=== PATIENT | male | born 1995 | race Two or more races ===

== ENCOUNTER 2023-04-20 03:29 | Emergency (ER) | payer OTHER, SELFPAY ==
[2023-04-20 03:32] VITALS: BP 150/95; PULSE 64; RESP 18; TEMP 36.9; O2SAT 98; BMI 46.5
--- NOTE | 2023-04-20 03:48 | ED.ABDPAIN1 ---
HPI - Abdominal Pain General Chief Complaint: Abdominal Pain Stated Complaint: flank pain Time Seen by Provider: 04/20/23 03:45 History of Present Illness HPI narrative: right flank pain started about 1.5 hours ago. Reminiscent of last time he had a kidney stone. No associated nausea or fever MD elicited complaint: Reports flank pain Related Data Home Medications Medication Instructions Recorded Confirmed No Known Home Medications 04/20/23 04/20/23 Allergies Allergy/AdvReac Type Severity Reaction Status Date / Time No Known Drug Allergies Allergy Verified 04/20/23 03:35 Review of Systems ROS Status of ROS 10 or more systems reviewed and unremarkable except as noted in history and below [facility] Social History Smoking status: Never smoker Exam Constitutional Vital Signs, click to edit/add: Last Vital Signs Temp 98.4 F 04/20/23 03:32 Pulse 86 04/20/23 06:06 Resp 16 04/20/23 06:06 BP 148/79 H 04/20/23 06:06 Pulse Ox 97 04/20/23 06:06 O2 Del Method Room Air 04/20/23 03:32 Common normals: no apparent distress, average body habitus, oriented x3, no limitations, healthy appearing, alert and well nourished [facility] Common normals: normocephalic and head/scalp atraumatic Respiratory Common normals: normal respiratory effort, no retractions, no use of accessory muscles and clear to auscultation bilaterally Cardio Common normals: regular rate, regular rhythm, S1 normal heart sound and S2 normal heart sound GI Common normals: Normal to inspection, nondistended, normoactive bowel sounds present, soft to palpation and non-tender Back & Pelvis Common normals: no CVA tenderness Extremity Common normals: normal to inspection and full ROM Neuro Common normals: oriented x3, CN's II-XII intact bilaterally and moves all extremities Psych Appearance: grossly normal Course Vital Signs Vital signs: Vital Signs Temperature 98.4 F 04/20/23 03:32 Pulse Rate 64 04/20/23 03:32 Respiratory Rate 18 04/20/23 03:32 Blood Pressure 150/95 H 04/20/23 03:32 Pulse Oximetry 98 04/20/23 03:32 Oxygen Delivery Method Room Air 04/20/23 03:32 Temperature 98.4 F 04/20/23 03:32 Pulse Rate 86 04/20/23 06:06 Respiratory Rate 16 04/20/23 06:06 Blood Pressure 148/79 H 04/20/23 06:06 Pulse Oximetry 97 04/20/23 06:06 Oxygen Delivery Method Room Air 04/20/23 03:32 MDM - Abdominal Pain MDM Narrative Medical decision making narrative: patient presents with acute onset right flank pain. past history of kidney stones. Pain started about 1.5 hours ago. No fever. UA clear. WBC elevated due to pain. CT with 3mm stone R UVJ. Pain releived and patient discharged home and advised to follow up with his urologist Lab Data Labs: Lab Results 04/20/23 04/20/23 Range/Units 03:40 04:25 WBC 21.0 H (4.0-11.0) 10^3/uL RBC 5.17 (4.70-6.10) 10^6/uL Hgb 15.3 (14.0-18.0) g/dL Hct 45.2 (42.0-54.0) % MCV 87.4 (80.0-94.0) fL MCH 29.6 (25.9-34.0) pg MCHC 33.8 (29.9-35.2) g/dL RDW 13.1 (11.0-15.0) % Plt Count 243 (150-450) 10^3/uL MPV 9.9 (9.5-13.5) fL Seg Neuts % (Manual) 51.0 Band Neutrophils % 0.0 (0-5) % Lymphocytes % (Manual) 24.0 (20.5-60.0) % Atypical Lymphs % (Man) 12.0 % Monocytes % (Manual) 10.0 (1.7-12.0) % Eosinophils % (Manual) 4.0 (0.9-7.0) % Basophils % (Manual) 0.0 L (0.2-2.0) % Neutrophils # (Manual) 10.71 H (1.4-6.5) 10^3/uL Band Neutrophils # 0.0 (0.0-0.3) 10^3/uL Lymphocytes # (Manual) 5.04 H (1.20-3.80) 10^3/uL Abs Atypical Lymphs Man 2.52 Monocytes # (Manual) 2.10 H (0.30-0.80) 10^3/uL Eosinophils # (Manual) 0.84 H (0.00-0.70) 10^3/uL Basophils # (Manual) 0.00 (0.00-0.10) 10^3/uL Sodium 139 (136-145) mmol/L Potassium 3.8 (3.5-5.1) mmol/L Chloride 104 (98-107) mmol/L Carbon Dioxide 27.2 (21.0-32.0) mmol/L Anion Gap 11.6 BUN 20.0 H (7.0-18.0) mg/dL Creatinine 1.40 H (0.70-1.30) mg/dL Est GFR ( Amer) >60 (>=60) Est GFR (Non-Af Amer) >60 (>=60) BUN/Creatinine Ratio 14.3 Glucose 112 H (74-106) mg/dL Calcium 8.9 (8.5-10.1) mg/dL Urine Color Yellow (YELLOW) Urine Clarity Clear (CLEAR) Urine pH 6.0 (5.0-9.0) Ur Specific Cod[place] 1.025 (1.005-1.025) Urine Protein Negative (NEG/TRACE) mg/dL Urine Glucose (UA) Negative (NEGATIVE) mg/dL Urine Ketones Negative (NEGATIVE) mg/dL Urine Occult Blood Negative (NEGATIVE) Urine Nitrite Negative (NEGATIVE) Urine Bilirubin Negative (NEGATIVE) Urine Urobilinogen 0.2 (0.2-1.0) EU/dL Ur Leukocyte Esterase Negative (NEGATIVE) Imaging Data Abdominal x-ray: Radiologist's impression: ITS Impressions Abdomen/Pelvis CT 04/20/23 03:50 IMPRESSION: There is a 0.3 cm obstructing calculus at the right UVJ with mild right pelvocaliectasis and mild right hydroureter. There are 0.1 cm, 0.3 cm and 0.4 cm nonobstructive calculi within the right renal pelvis. There are 0.2 cm, 0.4 cm and 0.3 cm nonobstructive calculi within the left renal pelvis. There is fatty infiltration of the liver. Electronically authenticated by: BONNIE HDZ Date: 04/20/2023 04:28 Discharge Plan Discharge Chief Complaint: Abdominal Pain Clinical Impression: Calculus of kidney Patient Disposition: Home, Self-Care Prescriptions / Home Meds: No Action No Known Home Medications Instructions: Kidney Stones (ED) Additional Instructions: follow up with your urologist Referrals: Physician,Non-Staff, MD [Primary Care Provider] - 1 week Sachin Tavarez MD [Physician] - As soon as possible Discharge Date/Time: 04/20/23 06:07 Stand Alone Forms: Portal Instructions
--- NOTE | 2023-04-20 03:50 | CT_ITS ---
The [address] [address] Patient Name: DOMINICK BUCK MRN: [id number] date: 1995 Sex: M Assigned Patient Location: ER Current Patient Location: ER Accession/Order Number: [id number] Exam Date: 04/20/2023 03:57 Report Date: 04/20/2023 04:28 At the request of: ORLANDO AGUILERA Procedure: CT abdomen pelvis wo con EXAM: CT abdomen pelvis wo con HISTORY: Right flank pain for one day and history of kidney stones. COMPARISON: None. TECHNIQUE: Routine CT abdomen/pelvis without intravenous contrast. FINDINGS: Right kidney/urinary bladder: There is a 0.3 cm obstructing calculus at the right UVJ with mild right pelvocaliectasis and mild right hydroureter. There are 0.1 cm, 0.3 cm and 0.4 cm nonobstructive calculi within the right renal pelvis. The urinary bladder is otherwise collapsed and not well visualized. Left kidney: There are 0.2 cm, 0.4 cm and 0.3 cm nonobstructive calculi within the left renal pelvis. There is no pelvocaliectasis and the left ureter is unremarkable. Lower chest: Unremarkable. Solid organs: There is fatty infiltration of the liver. The gallbladder, biliary tree, pancreas, spleen and bilateral adrenal glands are unremarkable. Bowel: Nonobstructive bowel gas pattern with a small amount of stool within the colon. The colon, appendix, distal esophagus, stomach and small bowel are unremarkable. Vasculature: There is a very small atheromatous calcification along the abdominal aorta. The IVC is unremarkable. Inflammation: There is no free air, free fluid or inflammatory reaction. Lymphadenopathy: There are no pathologically enlarged lymph nodes within the abdomen/pelvis. Pelvis: The prostate gland is normal size. Osseous: Unremarkable. CT/CT abdomen pelvis wo con IMPRESSION: There is a 0.3 cm obstructing calculus at the right UVJ with mild right pelvocaliectasis and mild right hydroureter. There are 0.1 cm, 0.3 cm and 0.4 cm nonobstructive calculi within the right renal pelvis. There are 0.2 cm, 0.4 cm and 0.3 cm nonobstructive calculi within the left renal pelvis. There is fatty infiltration of the liver. Electronically authenticated by: BONNIE HDZ Date: 04/20/2023 04:28
[2023-04-20 03:59] LABS: Hematocrit 45.2 % (42.0-54.0); Hemoglobin 15.3 g/dL (14.0-18.0); Mean Corpuscular HGB Conc 33.8 g/dL (29.9-35.2); Mean Corpuscular Hemoglobin 29.6 pg (25.9-34.0); Mean Corpuscular Volume 87.4 fL (80.0-94.0); Mean Platelet Volume 9.9 fL (9.5-13.5); Platelet Count 243 10^3/uL (150-450); Red Blood Count 5.17 10^6/uL (4.70-6.10); Red Cell Distribution Width 13.1 % (11.0-15.0)
[2023-04-20 04:13] LABS: Anion Gap 11.6; BUN Creatinine Ratio 14.3; Calcium 8.9 mg/dL (8.5-10.1); Carbon Dioxide 27.2 mmol/L (21.0-32.0); Chloride 104 mmol/L (98-107); Estimated GFR (African America >60 (>=60); Estimated GFR (Non-African Ame >60 (>=60); Glucose 112 mg/dL (74-106); Potassium 3.8 mmol/L (3.5-5.1); Sodium 139 mmol/L (136-145)
[2023-04-20] MEDS: 0.9 % SODIUM CHLORIDE 1,000 ML 999 ML IV (04:24)
[2023-04-20] MEDS: KETOROLAC TROMETHAMINE 30 MG/ML VIAL IM (04:25)
[2023-04-20 04:26] LABS: Atypical Lymphocytes Abs Man 2.52; Eosinophils Absolute Manual 0.84 10^3/uL (0.00-0.70); Lymphocytes Absolute Manual 5.04 10^3/uL (1.20-3.80); Segmented Neut Absolute Manual 10.71 10^3/uL (1.4-6.5)
[2023-04-20 04:33] LABS: Bilirubin Urine NEGATIVE (NEGATIVE); Blood Urine NEGATIVE (NEGATIVE); Clarity Urine CLEAR (CLEAR); Color Urine YELLOW (YELLOW); Glucose Urine UA NEGATIVE (NEGATIVE); Ketones Urine NEGATIVE (NEGATIVE); Leukocyte Esterase Urine NEGATIVE (NEGATIVE); Nitrite Urine NEGATIVE (NEGATIVE); Protein Urine NEGATIVE (NEG/TRACE); Specific Gravity Urine 1.025 (1.005-1.025); Urine Microscopic Indicated NO; Urobilinogen Urine 0.2 EU/dL (0.2-1.0)
[2023-04-20] MEDS: FENTANYL CITRATE/PF 100 MCG/2 ML VIAL 50 MCG IV (05:02)
[2023-04-20] MEDS: ORPHENADRINE 60 MG/ 2 ML VIAL IV (05:03)
[2023-04-20 06:06] VITALS: BP 148/79; PULSE 86; RESP 16; O2SAT 97
== END 2023-04-20 06:07 | disposition home or self-care (01) ==
PROVIDERS: Emergency Provider Internal Medicine
DX: N20.0 Calculus of kidney (principal); Z87.442 Personal history of urinary calculi
CPT/HCPCS: 36415; 74176; 80048; 81003; 85007; 85027; 96372; 96374; 96375; 99284

== ENCOUNTER 2024-02-04 17:31 | Emergency (ER) | payer MEDICAID, SELFPAY ==
[2024-02-04 17:39] VITALS: BP 132/84; PULSE 74; TEMP 36.8; O2SAT 97; BMI 44.3
--- NOTE | 2024-02-04 17:46 | ECG_ITS ---
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
--- NOTE | 2024-02-04 17:50 | CT_ITS ---
[address] [address] Patient Name: DOMINICK BUCK MRN: [id number] date: 1995 Sex: M Assigned Patient Location: ER Current Patient Location: ER Accession/Order Number: [id number] Exam Date: 02/04/2024 18:27 Report Date: 02/04/2024 20:28 At the request of: ANGELIQUE RAJAN Procedure: CT abdomen pelvis wo con CT ABDOMEN/PELVIS WITHOUT IV CONTRAST. INDICATION: left flank pain, history of nephrolithiasis COMPARISON: 04/20/2023. TECHNIQUE: Contiguous axial images were obtained from the lung bases to the pelvic floor without intravenous or oral contrast. Coronal and sagittal reformations are provided. FINDINGS: LOWER LUNGS: Clear. LIVER/BILIARY TREE: No discrete lesion. No intrahepatic ductal dilatation. Hepatic steatosis. GALLBLADDER: No significant gallbladder wall thickening. No radiopaque stone. CBD: Normal CBD. SPLEEN: Normal in size. PANCREAS: No appreciable peripancreatic fluid. No pancreatic ductal dilatation. No discrete lesion. ADRENALS: Normal. KIDNEYS: There is an obstructing 3 x 3 mm stone in the distal third of the left ureter resulting in minimal hydronephrosis. There are nonobstructing bilateral renal stones.. STOMACH AND BOWEL: Stomach is unremarkable. No dilated bowel loops. No bowel wall thickening. APPENDIX: Normal appendix. PERITONEAL CAVITY: No fluid. No fat stranding. ABDOMINAL WALL: No subcutaneous stranding. No subcutaneous fluid collection. LYMPH NODES: No mesenteric or retroperitoneal lymphadenopathy by CT criteria. ABDOMINAL AORTA: No aneurysm. PELVIS: No acute abnormality. MUSCULOSKELETAL: No acute osseous abnormality. CT/CT abdomen pelvis wo con IMPRESSION: Obstructing 3 mm left ureteral stone resulting in minimal hydronephrosis. Bilateral nephrolithiasis. Electronically authenticated by: NELSON YANEZ Date: 02/04/2024 20:28
--- NOTE | 2024-02-04 17:53 | PC.NURSE ---
patient has history of kidney stones that he has passed on his own previously. patient reports left flank pain that began earlier today that comes and goes and causes nausea and vomiting.
[2024-02-04] MEDS: ONDANSETRON PF 4 MG/2 ML VIAL IV (17:59)
[2024-02-04] MEDS: KETOROLAC TROMETHAMINE 30 MG/ML VIAL IVP (17:59)
[2024-02-04] MEDS: 0.9 % SODIUM CHLORIDE 1,000 ML 100 ML IV (17:59)
--- OUTSIDE RECORDS SUMMARY | 2024-02-04 18:02 | XMS_ITS | CCD ---
Author Organization [facility] Care Team Providers Care Retort Load Expediter Name Role Phone Harishkia DO Arcadio Catalan Attending Provider [phone] SHAMMO, ERIK Admitting Unavailable SHAMMO, ERIK Attending Unavailable SHAMMO, ERIK Primary Care Unavailable SHAMMO, ERIK Admitting Unavailable SHAMMO, ERIK Attending Unavailable SHAMMO, ERIK Consulting Unavailable SHAMMO, ERIK Primary Care Unavailable Problems Problem Classification Problem Date Documented Date Episodic/Chronic Immunizations and screening for infectious disease (1 source) Encounter for screening for other viral diseases; Translations: [ENC SCREENING FOR OTH VIRAL DZ] Onset: 11-18-2021 Episodic Other screening for suspected conditions (not mental disorders or infectious disease) (2 sources) Encounter for screening for other suspected endocrine disorder; Translations: [Encounter for screening for cardiovascular disorders] Onset: 11-18-2021 Episodic Results Test Name Value Interpretation Reference Range Facility HEPATITIS C VIRUS AB W/ REFL EX QUANTon 11-17-2021 HCV AB <0.1 Normal 0.0-0.9 [facility] Comment on above: Performed By: #### H CVPCRR #### [facility] [address] [address] [address] Dayna Maldonado Interpretation: Comment Normal [facility] Comment on above: Result Comment: Nega tive Not infected with HCV, unless recent infection is suspected or other evidence exists to indicate HCV infection. Performed By: #### H CVPCRR #### [facility] [address] [address] [address] Dayna Maldonado CBC AUTO DIFFon 11-16-2021 BASO # 0.1 103/ul Normal 0.0-0.1 [facility] Comment on above: Performed By: #### C BC #### [facility] [address] [address] [address] Dayna Maldonado Basophils/100 WBC (Bld) 0.4 % Normal 0.2-2.0 [facility] Comment on above: Performed By: #### C BC #### [facility] [address] [place] [address] Dr. Dayna Maldonado EO # 0.5 103/ul Normal 0.0-0.7 [facility] Comment on above: Performed By: #### C BC #### [facility] [address] [place] [address] Dr. Dayna Maldonado Eosinophils/100 WBC (Bld) 4.1 % Normal 0.9-7.0 [facility] Comment on above: Performed By: #### C BC #### [facility] [address] [place] [address] Dr. Dayna Maldonado Erythrocyte distribution width (RBC) [Ratio] 12.9 % Normal 11.0-15.0 [facility] Comment on above: Performed By: #### C BC #### [facility] [address] [place] [address] Dr. Dayna Maldonado Hematocrit (Bld) [Volume fraction] 45.6 % Normal 42.0-54.0 [facility] Comment on above: Performed By: #### C BC #### [facility] [address] [place] [address] Dr. Dayna Maldonado Hemoglobin (Bld) [Mass/Vol] 15.2 g/dL Normal 14.0-18.0 [facility] Comment on above: Performed By: #### C BC #### [facility] [address] [place] [address] Dr. Dayna Maldonado IG # 0.08 10e3/ul Critically high 0.00-0.03 [facility] Comment on above: Performed By: #### C BC #### [facility] [address] [place] [address] Dr. Dayna Maldonado IG % 0.7 % Critically high 0.0-0.5 [facility] Comment on above: Performed By: #### C BC #### [facility] [address] [place] [address] Dr. Dayna Maldonado LYMPH # 4.5 103/ul Critically high 1.2-3.8 [facility] Comment on above: Performed By: #### C BC #### [facility] [address] [place] [address] Dr. Dayna Maldonado Lymphocytes/100 WBC (Bld) 39.6 % Normal 20.5-60.0 [facility] Comment on above: Performed By: #### C BC #### [facility] [address] [place] [address] Dr. Dayna Maldonado MANUAL DIFF REQ NO Normal [facility] Comment on above: Performed By: #### C BC #### [facility] [address] [place] [address] Dr. Dayna Maldonado MCH (RBC) [Entitic mass] 28.5 pg Normal 25.9-34.0 [facility] Comment on above: Performed By: #### C BC #### [facility] [address] [place] [address] Dr. Dayna Maldonado MCHC (RBC) [Mass/Vol] 33.3 g/dL Normal 29.9-35.2 [facility] Comment on above: Performed By: #### C BC #### [facility] [address] [place] [address] Dr. Dayna Maldonado MCV (RBC) [Entitic vol] 85.6 fL Normal 80.0-94.0 [facility] Comment on above: Performed By: #### C BC #### [facility] [address] [place] [address] Dr. Dayna Maldonado MONO # 0.9 103/ul Critically high 0.3-0.8 [facility] Comment on above: Performed By: #### C BC #### [facility] [address] [place] [address] Dr. Dayna Maldonado Monocytes/100 WBC (Bld) 7.8 % Normal 1.7-12.0 [facility] Comment on above: Performed By: #### C BC #### [facility] [address] [place] [address] Dr. Dayna Maldonado NEUT # 5.4 103/ul Normal 1.4-6.5 [facility] Comment on above: Performed By: #### C BC #### [facility] [address] [address] [address] Dayna Maldonado Neutrophils/100 WBC (Bld) 47.4 % Normal 43.0-75.0 [facility] Comment on above: Performed By: #### C BC #### [facility] [address] [address] [address] Dayna Maldonado Platelet mean volume (Bld) [Entitic vol] 9.9 fL Normal 9.5-13.5 [facility] Comment on above: Performed By: #### C BC #### [facility] [address] [place] [address] Dr. Dayna Maldonado PLT 194 103/ul Normal 150-450 [facility] Comment on above: Performed By: #### C BC #### [facility] [address] [place] [address] Dr. Dayna Maldonado RBC 5.33 106/ul Normal 4.70-6.10 [facility] Comment on above: Performed By: #### C BC #### [facility] [address] [address] [address] Dayna Maldonado WBC 11.4 103/ul Critically high 4.0-11.0 [facility] Comment on above: Performed By: #### C BC #### [facility] [address] [place] [address] Dr. Dayna Maldonado FREE T3on 11-16-2021 FREE T3 2.82 pg/mlL Normal 2.18-3.98 [facility] Comment on above: Performed By: #### F T3, LIPID, TSH, CMP #### [facility] [address] [address] [address] Dayna Maldonado FREE T4on 11-16-2021 Free T4 [Mass/Vol] 0.96 ng/dL Normal 0.76-1.46 [facility] Comment on above: Performed By: #### F T4 #### [facility] [address] [place] [address] Dr. Dayna Maldonado GLYCOHEMOGLOBIN A1Con 2021 ADA RECOMMENDATION SEE BELOW Normal [facility] Comment on above: Result Comment: ADA RECOMMENDED LIMIT 4.0 - 6.0 ADA THERAPEUTIC TARGET < 7.0 ACTION SUGGESTED > 7.0 Performed By: #### A 1C #### [facility] [address] [address] [address] Dayna Maldonado Glucose [Mass/Vol] 111 mg/dL Normal [facility] Comment on above: Performed By: #### A 1C #### [facility] [address] [address] [address] Dayna Maldonado HbA1c (Bld) [Mass fraction] 5.5 % Normal 4.5-6.2 [facility] Comment on above: Performed By: #### A 1C #### [facility] [address] [place] [address] Dr. Dayna Maldonado LIPID PROFILEon 11-16-2021 CHOL-HDL RATIO NORM SEE BELOW Normal [facility] Comment on above: Result Comment: 3.3 - 4.4 LOW RISK 4.4 - 7.1 AVERAGE RISK 7.1 - 11.0 MODERATE RISK >11.0 HIGH RISK Performed By: #### F T3, LIPID, TSH, CMP #### [facility] [address] [place] [address] Dr. Dayna Maldonado Cholesterol [Mass/Vol] 153 mg/dL Normal <=200 [facility] Comment on above: Performed By: #### F T3, LIPID, TSH, CMP #### [facility] [address] [place] [address] Dr. Dayna Maldonado Cholesterol in HDL [Mass/Vol] 30 mg/dL Critically low 40-60 [facility] Comment on above: Performed By: #### F T3, LIPID, TSH, CMP #### [facility] [address] [place] [address] Dr. Dayna Maldonado Cholesterol in LDL [Mass/Vol] 96.0 mg/dL Normal [facility] Comment on above: Performed By: #### F T3, LIPID, TSH, CMP #### [facility] [address] [place] [address] Dr. Dayna Maldonado Cholesterol.total/Cho lesterol in HDL [Mass ratio] 5.1 {ratio} Normal [facility] Comment on above: Performed By: #### F T3, LIPID, TSH, CMP #### [facility] [address] [address] [address] Dayna Maldonado HDL NORMAL > or = 60 mg/dl - LOW CARDIOVASCULAR RISK <40 mg/dl - HIGH CARDIOVASCULAR RISK Normal [facility] Comment on above: Performed By: #### F T3, LIPID, TSH, CMP #### [facility] [address] [place] [address] Dr. aDyna Maldonado LDL CALC NORMAL SEE BELOW Normal [facility] Comment on above: Result Comment: <100 mg/dl OPTIMAL 100 - 129 mg/dl NEAR OR ABOVE OPTIMAL 130 - 159 mg/dl BORDERLINE HIGH 160 - 189 mg/dl HIGH >190 mg/dl VERY HIGH Performed By: #### F T3, LIPID, TSH, CMP #### [facility] [address] [place] [address] Dr. Dayna Maldonado Triglyceride [Mass/Vol] 135 mg/dL Normal <=150 [facility] Comment on above: Performed By: #### F T3, LIPID, TSH, CMP #### [facility] [address] [place] [address] Dr. Dayna Maldonado VLDL CALC 27.0 mg/dL Normal [facility] Comment on above: Performed By: #### F T3, LIPID, TSH, CMP #### [facility] [address] [place] [address] Dr. Dayna Maldonado PROF 14(COMP METB)on 022 Albumin [Mass/Vol] 4.5 g/dL Normal 3.4-5.0 [facility] Comment on above: Performed By: #### F T3, LIPID, TSH, CMP #### [facility] [address] [place] [address] Dr. Dayna Maldonado Albumin/Globulin [Mass ratio] 1.5 {ratio} Normal [facility] Comment on above: Performed By: #### F T3, LIPID, TSH, CMP #### [facility] [address] [place] [address] Dr. Dayna Maldonado ALP [Catalytic activity/Vol] 49 U/L Normal 46-116 [facility] Comment on above: Performed By: #### F T3, LIPID, TSH, CMP #### [facility] [address] [place] [address] Dr. Dayna Maldonado ALT [Catalytic activity/Vol] 37 U/L Normal 16-63 [facility] Comment on above: Performed By: #### F T3, LIPID, TSH, CMP #### [facility] [address] [place] [address] Dr. Dayna Maldonado Anion gap [Moles/Vol] 13.9 mmol/L Normal [facility] Comment on above: Performed By: #### F T3, LIPID, TSH, CMP #### [facility] [address] [place] [address] Dr. Dayna Maldonado AST [Catalytic activity/Vol] 20 U/L Normal 15-37 [facility] Comment on above: Performed By: #### F T3, LIPID, TSH, CMP #### [facility] [address] [place] [address] Dr. Dayna Maldonado Bilirubin [Mass/Vol] 0.5 mg/dL Normal 0.2-1.0 [facility] Comment on above: Performed By: #### F T3, LIPID, TSH, CMP #### [facility] [address] [place] [address] Dr. Dayna Maldonado Calcium [Mass/Vol] 9.3 mg/dL Normal 8.5-10.1 [facility] Comment on above: Performed By: #### F T3, LIPID, TSH, CMP #### [facility] [address] [place] [address] Dr. Dayna Maldonado Chloride [Moles/Vol] 104 mmol/L Normal 98-107 [facility] Comment on above: Performed By: #### F T3, LIPID, TSH, CMP #### [facility] [address] [place] [address] Dr. Dayna Maldonado CO2 [Moles/Vol] 27.2 mmol/L Normal 21.0-32.0 [facility] Comment on above: Performed By: #### F T3, LIPID, TSH, CMP #### [facility] [address] [address] [address] Dayna Maldonado Creatinine [Mass/Vol] 0.95 mg/dL Normal 0.70-1.30 [facility] Comment on above: Performed By: #### F T3, LIPID, TSH, CMP #### [facility] [address] [address] [address] Dayna Maldonado EGFR-AF HUNGARIAN >60 Normal >=60 [facility] Comment on above: Performed By: #### F T3, LIPID, TSH, CMP #### [facility] [address] [address] [address] Dayna Maldonado EGFR-NON AF HUNGARIAN >60 Normal >=60 [facility] Comment on above: Performed By: #### F T3, LIPID, TSH, CMP #### [facility] [address] [address] [address] Dayna Maldonado Globulin (S) [Mass/Vol] 3.1 g/dL Normal [facility] Comment on above: Performed By: #### F T3, LIPID, TSH, CMP #### [facility] [address] [address] [address] Dayna Maldonado Glucose [Mass/Vol] 100 mg/dL Normal 74-106 [facility] Comment on above: Performed By: #### F T3, LIPID, TSH, CMP #### [facility] [address] [address] [address] Dayna Maldonado Potassium [Moles/Vol] 4.1 mmol/L Normal 3.5-5.1 [facility] Comment on above: Performed By: #### F T3, LIPID, TSH, CMP #### [facility] [address] [address] [address] Dayna Maldonado Protein [Mass/Vol] 7.6 g/dL Normal 6.4-8.2 [facility] Comment on above: Performed By: #### F T3, LIPID, TSH, CMP #### [facility] [address] [address] [address] Dayna Maldonado Sodium [Moles/Vol] 141 mmol/L Normal 136-145 [facility] Comment on above: Performed By: #### F T3, LIPID, TSH, CMP #### [facility] [address] [address] [address] Dayna Maldonado Urea nitrogen [Mass/Vol] 12.0 mg/dL Normal 7.0-18.0 [facility] Comment on above: Performed By: #### F T3, LIPID, TSH, CMP #### [facility] [id number] Dayna Maldonado Urea nitrogen/Creatinine [Mass ratio] 12.6 mg/mg Normal [facility] Comment on above: Performed By: #### F T3, LIPID, TSH, CMP #### [facility] [address] [address] [address] Dayna Maldonado TSHon 11-16-2021 TSH 0.973 uIU/mL Normal 0.358-3.740 [facility] Comment on above: Performed By: #### F T3, LIPID, TSH, CMP #### [facility] [address] [address] [address] Dayna Maldonado XR chest 1Von 08-18-2021 XR chest 1V [facility] [place] [address] XRay Report Signed Patient: Dominick Silverio MR#: [id number] 45 : 1995 Acct:[id number] Age/Sex: 26 / M ADM Date: 08/18/21 Loc: [place] Room: Type: [facility] REF Attending Dr: Arcadio Germain [facility] Copies to: Arcadio Germain DO Ordering Provider: Arcadio Germain DO Date of Service: 08/18/21 XR/XR chest 1V: PRE EMPLOYMENT RESP PHYSICAL PA CHEST: CLINICAL HISTORY: Smoker. COMPARISON: None The heart is normal in size. The lungs are clear. The pulmonary vasculature is normal. Mediastinum and hilar regions are unremarkable. No pleural effusions are seen. Visualized bones are intact. XR/XR chest 1V IMPRESSION: NEGATIVE CHEST. Impression dictated by: Brandon Sanchez Jr., D.O.08/18/2021 10:25 AM Dictation Location: [place] [address] Transcribed By: [facility] 08/18/21 1025 Dictated By: Brandon Sanchez Jr, DO 08/18/21 1025 Signed By: 08/18/21 1025 [facility] Encounters Encounter Date Encounter Type Care Provider Facility Start: 11-20-2021 ambulatory ERIK SHAMMO Facility:H 1 Start: 11-18-2021 Encounter for genera l adult medical examination without abnormal findings ERIK SHAMMO [facility] Start: 11-16-2021 End: 11-17-2021 ambulatory ERIK SHAMMO Facility:[facility] Start: 11-16-2021 End: 11-17-2021 Encounter for general adult medical examination without abnormal findings ERIK SHAMMO Facility:[facility]1 Start: 08-18-2021 End: 08-18-2021 Departed Referred DO Arcadio Germain Work Phone: [facility] [address] Payers Date Payer Category Payer Unknown [id number] 1995 Unknown [id number] 1957 Private Health Insurance [id number] 1957 Self-pay Social History Date Type Detail Facility Tobacco smoking stat [facility] Unknown if ever smoked [facility] Work Phone: Start: 1995 Sex Assigned At Male F [facility] Evaluation note Note Date & Type Note Facility Evaluation note No assessment information availa ble [facility] Work Phone: Chief Complaint and Reason for Visit Chief Complaint WORK Summary Purpose Family History No Family History Records FoundNo Family History Records Found Advance Directives No Advanced Directives Records FoundNo Advanced Directives Records Found Additional Source Comments Care Teams (unrecognized sec tion and content) Team Status: Inactive Member Role Status Dates Arcadio Germain DO [facility] Attending Provider Active Goals (unrecognized section and content) Goals may be documented in a n alternate section (unrecognized sect ion and content) No Status Records FoundNo Status Records Found INFORMATION SOURCE (unrecogn ized section and content) DATE CREATED AUTHOR 08/19/2021 [facility] DATE CREATED AUTHOR AUTHORMiracle ROONEY 11/21/2021 [facility] FOR RECORDS PERTAINING TO PATIENTS WHO ARE OR HAVE BEEN ENROLLED IN A CHEMICAL DEPENDENCY/SUBSTANCEABUSE PROGRAM, SOME INFORMATION MAY BE OMITTED. This clinical summary was aggregated from multiple sources. Caution should be exercised in using it in the provision of clinical care. This summary normalizes information from multiple sources, and as a consequence, information in this document may materially change the coding, format and clinical context of patient data. In addition, data may be omitted in some cases. CLINICAL DECISIONS SHOULD BE BASED ON THE PRIMARY CLINICAL RECORDS. [employer] provides no warranty or guarantee of the accuracy or completeness of information in this document.
[2024-02-04] MEDS: TAMSULOSIN HCL 0.4 MG CAPSULE PO (18:10)
[2024-02-04] MEDS: MORPHINE SULFATE 4 MG/ML VIAL IV (18:35)
[2024-02-04 18:49] LABS: Bilirubin Urine NEGATIVE (NEGATIVE); Blood Urine NEGATIVE (NEGATIVE); Clarity Urine CLEAR (CLEAR); Color Urine YELLOW (YELLOW); Glucose Urine UA NEGATIVE (NEGATIVE); Ketones Urine TRACE mg/dL (NEGATIVE); Leukocyte Esterase Urine NEGATIVE (NEGATIVE); Nitrite Urine NEGATIVE (NEGATIVE); Protein Urine 30 mg/dL (NEG/TRACE); Specific Gravity Urine >=1.030 (1.005-1.025); Urobilinogen Urine 0.2 EU/dL (0.2-1.0); pH Urine 5.5 (5.0-9.0)
[2024-02-04 18:54] LABS: Urine Microscopic Indicated YES
[2024-02-04 18:56] LABS: Bacteria Urine TRACE #/HPF (NONE SEEN); Cast Seen? NONE SEEN #/LPF (NONE SEEN); Crystals Seen? None Seen #/HPF (None Seen); Mucus Urine TRACE (NONE SEEN); RBC Urine 0-2 #/HPF (0-2); Squamous Epithelial Cell Urine RARE #/LPF (NONE/RARE)
[2024-02-04 19:05] LABS: Alanine Aminotransferase 51 U/L (16-63); Albumin Globulin Ratio 1.3; Albumin Level 4.5 g/dL (3.4-5.0); Alkaline Phosphatase 50 U/L (46-116); Anion Gap 18.6; Aspartate Amino Transferase 37 U/L (15-37); BUN Creatinine Ratio 12.6; Bilirubin Total 0.5 mg/dL (0.2-1.0); Calcium 9.6 mg/dL (8.5-10.1); Carbon Dioxide 23.7 mmol/L (21.0-32.0); Chloride 102 mmol/L (98-107); Estimated GFR (African America >60 (>=60 mL/min/1.73m^2); Estimated GFR (Non-African Ame >60 (>=60 mL/min/1.73m^2); Globulin 3.4 g/dL; Glucose 137 mg/dL (74-106); Potassium 4.3 mmol/L (3.5-5.1); Sodium 140 mmol/L (136-145); Total Protein 7.9 g/dL (6.4-8.2)
[2024-02-04 19:13] LABS: Basophils Absolute Auto 0.1 10^3/uL (0.0-0.1); Basophils Percent Auto 0.3 % (0.2-2.0); Eosinophils Absolute Auto 0.1 10^3/uL (0.0-0.7); Eosinophils Percent Auto 0.6 % (0.9-7.0); Hematocrit 44.7 % (42.0-54.0); Hemoglobin 15.5 g/dL (14.0-18.0); Immature Granulocytes Abs Auto 0.09 10^3/uL (0.00-0.03); Immature Granulocytes Pct Auto 0.5 % (0.0-0.5); Lymphocytes Absolute Auto 2.8 10^3/uL (1.2-3.8); Lymphocytes Percent Auto 14.7 % (20.5-60.0); Mean Corpuscular HGB Conc 34.7 g/dL (29.9-35.2); Mean Corpuscular Hemoglobin 29.8 pg (25.9-34.0); Mean Corpuscular Volume 85.8 fL (80.0-94.0); Mean Platelet Volume 9.9 fL (9.5-13.5); Monocytes Absolute Auto 0.5 10^3/uL (0.3-0.8); Monocytes Percent Auto 2.7 % (1.7-12.0); Neutrophils Absolute Auto 15.1 10^3/uL (1.4-6.5); Neutrophils Percent Auto 81.2 % (43.0-75.0); Platelet Count 197 10^3/uL (150-450); Red Blood Count 5.21 10^6/uL (4.70-6.10); White Blood Count 18.7 10^3/uL (4.0-11.0)
[2024-02-04 19:16] VITALS: BP 147/81; PULSE 60; O2SAT 99
[2024-02-04] MEDS: HYDROMORPHONE HCL 0.5 MG/0.5 ML SYRINGE IV (19:40)
--- NOTE | 2024-02-04 20:23 | ED_ITS ---
HPI HPI - General Adult General Chief complaint: Urogenital-Male Stated complaint: CP, ABDOMINAL PAIN, BACK PAIN Time Seen by Provider: 02/04/24 17:50 Source: patient Mode of arrival: Carry Limitations: no limitations History of Present Illness HPI narrative: 28-year-old male presents to the emergency room chief complaint of left flank pain. Patient states the pain is similar to stones that he has had in the past. Surgery for stones in the past he has not had one for several months. He does not see urology. Patient complains of mild nausea but denies fever or emesis. patient states he has been able to urinate. He states he has had some pain with urination. patient is currently aFebrile. Related Data Previous Rx's ?Medication ?Instructions ?Recorded ondansetron HCl 4 mg tablet 4 mg PO Q8H 3 days #9 tabs 02/04/24 tamsulosin 0.4 mg capsule (Flomax) 0.4 mg PO DAILY #5 caps 02/04/24 Allergies Allergy/AdvReac Type Severity Reaction Status Date / Time No Known Drug Allergies Allergy Verified 04/20/23 03:35 Opioid HPI Opioid Management Most Recent Opioid Data: Last Pain Scale 4 02/04/24 20:57 02/04/24 Last ED Pain Assessment 02/04/24 19:17 Review of Systems ROS Narrative All Systems are negative except as noted/marked.All systems reviewed and otherwise negative PFSH PFSH Social History Smoking status: Never smoker Little interest or pleasure in doing things: not at all Feeling down, depressed, or hopeless: not at all Exam Narrative Exam Narrative: Nurses note and vital signs reviewed and patient is not hypoxic. General: The patient appears well and in no apparent distress. Patient is resting comfortably on cart. Skin: Warm, dry, no pallor noted. There is no rash noted. Head: Normocephalic, atraumatic Eye: Normal conjunctiva, no drainage, EOMI. PERRL Ears, Nose, Mouth, and Throat: oral mucosa is moist. Nares patent. Mouth without vesicles. Ear canals patent. Tm's without Erythema Cardiovascular: Regular Rate and Rhythm Respiratory: Patient is in no distress, no accessory muscle use, lungs are clear to auscultation, no wheezing, rales or rhonchi Back: non-tender, no CVA tenderness bilaterally to percussion. GI: Normal bowel sounds, no tenderness to palpation, no masses appreciated. No rebound, guarding, or rigidity noted. Musculoskeletal: The patient has no evidence of calf tenderness, no pitting edema, symmetrical pulses noted bilaterally Neurological: A&O x4, normal speech Psychiatric: Cooperative Constitutional Vital Signs, click to edit/add: Last Vital Signs Temp 98.3 F 02/04/24 17:39 Pulse 60 02/04/24 19:16 Resp 16 02/04/24 19:16 BP 147/81 H 02/04/24 19:16 Pulse Ox 99 02/04/24 19:16 O2 Del Method Room Air 02/04/24 19:16 Course Vital Signs Vital signs: Vital Signs Temperature 98.3 F 02/04/24 17:39 Pulse Rate 74 02/04/24 17:39 Respiratory Rate 16 02/04/24 17:39 Blood Pressure 132/84 02/04/24 17:39 Pulse Oximetry 97 02/04/24 17:39 Oxygen Delivery Method Room Air 02/04/24 17:39 Temperature 98.3 F 02/04/24 17:39 Pulse Rate 60 02/04/24 19:16 Respiratory Rate 16 02/04/24 19:16 Blood Pressure 147/81 H 02/04/24 19:16 Pulse Oximetry 99 02/04/24 19:16 Oxygen Delivery Method Room Air 02/04/24 19:16 Medical Decision Making [facility] Narrative Medical decision making narrative: 8-year-old male presented to the emergency room chief complaint of left flank pain. He has a history of kidney stones and felt like the pain was similar to previous episodes. Upon arrival to the emergency room IV was established CBC cMP were also drawn. Labs were reviewed patient had an elevated white blood cell count only due to pain. He said previous blood work here in the emergency room white cell count was 20 at that time is 18,000 today. 20 BUN/creatinine were within normal limits. Patient was sent to CT. CT did result and patient has a 3 mm obstructing stone with mild hydronephrosis. Patient's pain was controlled with IV fluids Toradol Zofran and morphine. Patient has been here waiting for several hours for CT scan to be resulted. Since that time he recently went to the restroom and states he had urinated mild amount of blood and felt some pain and now his pain is totally gone. He believes he may have passed the stone. Patient advised to follow-up with urology. He will be discharged home with Zofran, [place] and Flomax. Patient verbalized understanding agrees with plan of care. Patient knows to return to the emergency room with increased pain or difficulty or inability to urinate. Differential Diagnosis Differential Diagnosis: flank pain, kidnedy stone Medical Records Medical records reviewed: Yes I reviewed the patient's medical records Lab Data Lab results reviewed: Yes I reviewed the patient's lab results Labs: Lab Results 02/04/24 02/04/24 02/04/24 Range/Units 17:51 18:11 19:03 WBC 18.7 H (4.0-11.0) 10^3/uL RBC 5.21 (4.70-6.10) 10^6/uL Hgb 15.5 (14.0-18.0) g/dL Hct 44.7 (42.0-54.0) % MCV 85.8 (80.0-94.0) fL MCH 29.8 (25.9-34.0) pg MCHC 34.7 (29.9-35.2) g/dL RDW 13.0 (11.0-15.0) % Plt Count 197 (150-450) 10^3/uL MPV 9.9 (9.5-13.5) fL Neut % (Auto) 81.2 H (43.0-75.0) % Lymph % (Auto) 14.7 L (20.5-60.0) % [place] % (Auto) 2.7 (1.7-12.0) % Eos % (Auto) 0.6 L (0.9-7.0) % Baso % (Auto) 0.3 (0.2-2.0) % Neut # (Auto) 15.1 H (1.4-6.5) 10^3/uL Lymph # (Auto) 2.8 (1.2-3.8) 10^3/uL [place] # (Auto) 0.5 (0.3-0.8) 10^3/uL Eos # (Auto) 0.1 (0.0-0.7) 10^3/uL Baso # (Auto) 0.1 (0.0-0.1) 10^3/uL Abs Immat Gran (auto) 0.09 H (0.00-0.03) 10^3/uL Imm/Tot Granulo (auto) 0.5 (0.0-0.5) % Sodium 140 (136-145) mmol/L Potassium 4.3 (3.5-5.1) mmol/L Chloride 102 (98-107) mmol/L Carbon Dioxide 23.7 (21.0-32.0) mmol/L Anion Gap 18.6 BUN 15.0 (7.0-18.0) mg/dL Creatinine 1.19 (0.70-1.30) mg/dL Est GFR ( Amer) >60 (>=60 mL/min/1.73m^2) Est GFR (Non-Af Amer) >60 (>=60 mL/min/1.73m^2) BUN/Creatinine Ratio 12.6 Glucose 137 H (74-106) mg/dL Calcium 9.6 (8.5-10.1) mg/dL Total Bilirubin 0.5 (0.2-1.0) mg/dL AST 37 (15-37) U/L ALT 51 (16-63) U/L Alkaline Phosphatase 50 (46-116) U/L Total Protein 7.9 (6.4-8.2) g/dL Albumin 4.5 (3.4-5.0) g/dL Globulin 3.4 g/dL Albumin/Globulin Ratio 1.3 Urine Color Yellow (YELLOW) Urine Clarity Clear (CLEAR) Urine pH 5.5 (5.0-9.0) Ur Specific [place] >=1.030 A (1.005-1.025) Urine Protein 30 A (NEG/TRACE) mg/dL Urine Glucose (UA) Negative (NEGATIVE) mg/dL Urine Ketones Trace A (NEGATIVE) mg/dL Urine Occult Blood Negative (NEGATIVE) Urine Nitrite Negative (NEGATIVE) Urine Bilirubin Negative (NEGATIVE) Urine Urobilinogen 0.2 (0.2-1.0) EU/dL Ur Leukocyte Esterase Negative (NEGATIVE) Urine RBC 0-2 (0-2) #/HPF Urine WBC 2-5 A (NONE SEEN) #/HPF Ur Squamous Epith Cells Rare (NONE/RARE) #/LPF Urine Crystals None seen (None Seen) #/HPF Urine Bacteria Trace A (NONE SEEN) #/HPF Urine Casts None seen (NONE SEEN) #/LPF Urine Mucus Trace A (NONE SEEN) Imaging Data CT scan - abdomen: Radiologist's impression: ITS Impressions Abdomen/Pelvis CT 02/04/24 17:50 IMPRESSION: Obstructing 3 mm left ureteral stone resulting in minimal hydronephrosis. Bilateral nephrolithiasis. Electronically authenticated by: NELSON YANEZ Date: 02/04/2024 20:28 ECG Data Interpretation: 1746 normal sinus rhythm with a rate of 76 bpm NH interval 162 ms QRS duration [address] elevation depression no STEMI Discharge Plan Discharge Chief Complaint: Urogenital-Male Clinical Impression: Calculus of kidney Patient Disposition: Home, Self-Care Time of Disposition Decision: 20:39 Condition: Good Prescriptions / Home Meds: New tamsulosin [Flomax] 0.4 mg capsule 0.4 mg PO DAILY Qty: 5 0RF ondansetron HCl 4 mg tablet 4 mg PO Q8H 3 Days Qty: 9 0RF Print Language: [place] Instructions: Kidney Stones (ED), How to Strain Your Urine (ED) Referrals: Physician,Non-Staff, MD [Primary Care Provider] - 1 week
[2024-02-04] MEDS: HYDROCODONE/ACET 5-325 MG TABLET 2 TAB PO (20:57)
== END 2024-02-04 21:06 | disposition home or self-care (01) ==
PROVIDERS: Physician Assistant; Emergency Provider Emergency Medicine
DX: N13.2 Hydronephrosis with renal and ureteral calculous obstruction (principal); Z87.442 Personal history of urinary calculi
CPT/HCPCS: 36415; 74176; 80053; 81001; 85025; 93005; 96374; 96375; 99285; J1171; J1885; J2270; J2405

== ENCOUNTER 2024-02-05 17:28 | Observation (INO) | payer MEDICAID, SELFPAY ==
--- OUTSIDE RECORDS SUMMARY | 2024-02-05 17:32 | XMS_ITS | CCD ---
Author Organization [facility] Care Team Providers Care Paid Search Marketing Strategist Name Role Phone Harishkia DO Arcadio Catalan Attending Provider SHAMMO, ERIK Admitting Unavailable SHAMMO, ERIK Attending [...] QUANTon 11-17-2021 HCV AB <0.1 Normal 0.0-0.9 [facility] Comment on above: Performed By: #### H CVPCRR #### [facility] [address] [address] [address] Dayna Maldonado Interpretation: Comment Normal [facility] Comment on above: Result Comment: Nega tive Not infected with HCV, unless recent infection is suspected or other evidence exists to indicate HCV infection. Performed By: #### H CVPCRR #### [facility] [address] [address] [address] Dayna Maldonado CBC AUTO DIFFon 11-16-2021 BASO # 0.1 103/ul Normal 0.0-0.1 [facility] Comment on above: Performed By: #### C BC #### [facility] [address] [address] [address] Dayna Maldonado Basophils/100 WBC (Bld) 0.4 % Normal 0.2-2.0 [facility] Comment on above: Performed By: #### C BC #### [facility] [address] [place] [address] Dr. Dayna Maldonado EO # 0.5 103/ul Normal 0.0-0.7 [facility] Comment on above: Performed By: #### C BC #### [facility] [address] [place] [address] Dr. Dayna Maldonado Eosinophils/100 WBC (Bld) 4.1 % Normal 0.9-7.0 [facility] Comment on above: Performed By: #### C BC #### [facility] [address] [place] [address] Dr. Dayna Maldonado Erythrocyte distribution width (RBC) [Ratio] 12.9 % Normal 11.0-15.0 [facility] Comment on above: Performed By: #### C BC #### [facility] [address] [place] [address] Dr. Dayna Maldonado Hematocrit (Bld) [Volume fraction] 45.6 % Normal 42.0-54.0 [facility] Comment on above: Performed By: #### C BC #### [facility] [address] [place] [address] Dr. Dayna Maldonado Hemoglobin (Bld) [Mass/Vol] 15.2 g/dL Normal 14.0-18.0 [facility] Comment on above: Performed By: #### C BC #### [facility] [address] [place] [address] Dr. Dayna Maldonado IG # 0.08 10e3/ul Critically high 0.00-0.03 [facility] Comment on above: Performed By: #### C BC #### [facility] [address] [place] [address] Dr. Dayna Maldonado IG % 0.7 % Critically high 0.0-0.5 [facility] Comment on above: Performed By: #### C BC #### [facility] [address] [place] [address] Dr. Dayna Maldonado LYMPH # 4.5 103/ul Critically high 1.2-3.8 [facility] Comment on above: Performed By: #### C BC #### [facility] [address] [place] [address] Dr. Dayna Maldonado Lymphocytes/100 WBC (Bld) 39.6 % Normal 20.5-60.0 [facility] Comment on above: Performed By: #### C BC #### [facility] [address] [place] [address] Dr. Dayna Maldonado MANUAL DIFF REQ NO Normal [facility] Comment on above: Performed By: #### C BC #### [facility] [address] [place] [address] Dr. Dayna Maldonado MCH (RBC) [Entitic mass] 28.5 pg Normal 25.9-34.0 [facility] Comment on above: Performed By: #### C BC #### [facility] [address] [place] [address] Dr. Dayna Maldonado MCHC (RBC) [Mass/Vol] 33.3 g/dL Normal 29.9-35.2 [facility] Comment on above: Performed By: #### C BC #### [facility] [address] [place] [address] Dr. Dayna Maldonado MCV (RBC) [Entitic vol] 85.6 fL Normal 80.0-94.0 [facility] Comment on above: Performed By: #### C BC #### [facility] [address] [place] [address] Dr. Dayna Maldonado MONO # 0.9 103/ul Critically high 0.3-0.8 [facility] Comment on above: Performed By: #### C BC #### [facility] [address] [place] [address] Dr. Dayna Maldonado Monocytes/100 WBC (Bld) 7.8 % Normal 1.7-12.0 [facility] Comment on above: Performed By: #### C BC #### [facility] [address] [place] [address] Dr. Dayna Maldonado NEUT # 5.4 103/ul Normal 1.4-6.5 [facility] Comment on above: Performed By: #### C BC #### [facility] [address] [address] [address] Dayna Maldonado Neutrophils/100 WBC (Bld) 47.4 % Normal 43.0-75.0 [facility] Comment on above: Performed By: #### C BC #### [facility] [address] [address] [address] Dayna Maldonado Platelet mean volume (Bld) [Entitic vol] 9.9 fL Normal 9.5-13.5 [facility] Comment on above: Performed By: #### C BC #### [facility] [address] [place] [address] Dr. Dayna Maldonado PLT 194 103/ul Normal 150-450 [facility] Comment on above: Performed By: #### C BC #### [facility] [address] [place] [address] Dr. Dayna Maldonado RBC 5.33 106/ul Normal 4.70-6.10 [facility] Comment on above: Performed By: #### C BC #### [facility] [address] [address] [address] Dayna Maldonado WBC 11.4 103/ul Critically high 4.0-11.0 [facility] Comment on above: Performed By: #### C BC #### [facility] [address] [place] [address] Dr. Dayna Maldonado FREE T3on 11-16-2021 FREE T3 2.82 pg/mlL Normal 2.18-3.98 [facility] Comment on above: Performed By: #### F T3, LIPID, TSH, CMP #### [facility] [address] [address] [address] Dayna Maldonado FREE T4on 11-16-2021 Free T4 [Mass/Vol] 0.96 ng/dL Normal 0.76-1.46 [facility] Comment on above: Performed By: #### F T4 #### [facility] [address] [place] [address] Dr. Dayna Maldonado GLYCOHEMOGLOBIN A1Con 2021 ADA RECOMMENDATION SEE BELOW Normal [facility] Comment on above: Result Comment: ADA RECOMMENDED LIMIT 4.0 - 6.0 ADA THERAPEUTIC TARGET < 7.0 ACTION SUGGESTED > 7.0 Performed By: #### A 1C #### [facility] [address] [address] [address] Dayna Maldonado Glucose [Mass/Vol] 111 mg/dL Normal [facility] Comment on above: Performed By: #### A 1C #### [facility] [address] [address] [address] Dayna Maldonado HbA1c (Bld) [Mass fraction] 5.5 % Normal 4.5-6.2 [facility] Comment on above: Performed By: #### A 1C #### [facility] [address] [place] [address] Dr. Dayna Maldonado LIPID PROFILEon 11-16-2021 CHOL-HDL RATIO NORM SEE BELOW Normal [facility] Comment on above: Result Comment: 3.3 - 4.4 LOW RISK 4.4 - 7.1 AVERAGE RISK 7.1 - 11.0 MODERATE RISK >11.0 HIGH RISK Performed By: #### F T3, LIPID, TSH, CMP #### [facility] [address] [place] [address] Dr. Dayna Maldonado Cholesterol [Mass/Vol] 153 mg/dL Normal <=200 [facility] Comment on above: Performed By: #### F T3, LIPID, TSH, CMP #### [facility] [address] [place] [address] Dr. Dayna Maldonado Cholesterol in HDL [Mass/Vol] 30 mg/dL Critically low 40-60 [facility] Comment on above: Performed By: #### F T3, LIPID, TSH, CMP #### [facility] [address] [place] [address] Dr. Dayna Maldonado Cholesterol in LDL [Mass/Vol] 96.0 mg/dL Normal [facility] Comment on above: Performed By: #### F T3, LIPID, TSH, CMP #### [facility] [address] [place] [address] Dr. Dayna Maldonado Cholesterol.total/Cho lesterol in HDL [Mass ratio] 5.1 {ratio} Normal [facility] Comment on above: Performed By: #### F T3, LIPID, TSH, CMP #### [facility] [address] [address] [address] Dayna Maldonado HDL NORMAL > or = 60 mg/dl - LOW CARDIOVASCULAR RISK <40 mg/dl - HIGH CARDIOVASCULAR RISK Normal [facility] Comment on above: Performed By: #### F T3, LIPID, TSH, CMP #### [facility] [address] [place] [address] Dr. Dayna Maldonado LDL CALC NORMAL SEE BELOW Normal [facility] Comment on above: Result Comment: <100 mg/dl OPTIMAL 100 - 129 mg/dl NEAR OR ABOVE OPTIMAL 130 - 159 mg/dl BORDERLINE HIGH 160 - 189 mg/dl HIGH >190 mg/dl VERY HIGH Performed By: #### F T3, LIPID, TSH, CMP #### [facility] [address] [place] [address] Dr. Dayna Maldonado Triglyceride [Mass/Vol] 135 mg/dL Normal <=150 [facility] Comment on above: Performed By: #### F T3, LIPID, TSH, CMP #### [facility] [address] [place] [address] Dr. Dayna Maldonado VLDL CALC 27.0 mg/dL Normal [facility] Comment on above: Performed By: #### F T3, LIPID, TSH, CMP #### [facility] [address] [place] [address] Dr. Dayna Maldonado PROF 14(COMP METB)on 022 Albumin [Mass/Vol] 4.5 g/dL Normal 3.4-5.0 [facility] Comment on above: Performed By: #### F T3, LIPID, TSH, CMP #### [facility] [address] [place] [address] Dr. Dayna Maldonado Albumin/Globulin [Mass ratio] 1.5 {ratio} Normal [facility] Comment on above: Performed By: #### F T3, LIPID, TSH, CMP #### [facility] [address] [place] [address] Dr. Dayna Maldonado ALP [Catalytic activity/Vol] 49 U/L Normal 46-116 [facility] Comment on above: Performed By: #### F T3, LIPID, TSH, CMP #### [facility] [address] [place] [address] Dr. Dayna Maldonado ALT [Catalytic activity/Vol] 37 U/L Normal 16-63 [facility] Comment on above: Performed By: #### F T3, LIPID, TSH, CMP #### [facility] [address] [place] [address] Dr. Dayna Maldonado Anion gap [Moles/Vol] 13.9 mmol/L Normal [facility] Comment on above: Performed By: #### F T3, LIPID, TSH, CMP #### [facility] [address] [place] [address] Dr. Dayna Maldonado AST [Catalytic activity/Vol] 20 U/L Normal 15-37 [facility] Comment on above: Performed By: #### F T3, LIPID, TSH, CMP #### [facility] [address] [place] [address] Dr. Dayna Maldonado Bilirubin [Mass/Vol] 0.5 mg/dL Normal 0.2-1.0 [facility] Comment on above: Performed By: #### F T3, LIPID, TSH, CMP #### [facility] [address] [place] [address] Dr. Dayna Maldonado Calcium [Mass/Vol] 9.3 mg/dL Normal 8.5-10.1 [facility] Comment on above: Performed By: #### F T3, LIPID, TSH, CMP #### [facility] [address] [place] [address] Dr. Dayna Maldonado Chloride [Moles/Vol] 104 mmol/L Normal 98-107 [facility] Comment on above: Performed By: #### F T3, LIPID, TSH, CMP #### [facility] [address] [place] [address] Dr. Dayna Maldonado CO2 [Moles/Vol] 27.2 mmol/L Normal 21.0-32.0 [facility] Comment on above: Performed By: #### F T3, LIPID, TSH, CMP #### [facility] [address] [address] [address] Dayna Maldonado Creatinine [Mass/Vol] 0.95 mg/dL Normal 0.70-1.30 [facility] Comment on above: Performed By: #### F T3, LIPID, TSH, CMP #### [facility] [address] [address] [address] Dayna Maldonado EGFR-AF MALIAN >60 Normal >=60 [facility] Comment on above: Performed By: #### F T3, LIPID, TSH, CMP #### [facility] [address] [address] [address] Dayna Maldonado EGFR-NON AF MALIAN >60 Normal >=60 [facility] Comment on above: Performed By: #### F T3, LIPID, TSH, CMP #### [facility] [address] [address] [address] Dayna Maldonado Globulin (S) [Mass/Vol] 3.1 g/dL Normal [facility] Comment on above: Performed By: #### F T3, LIPID, TSH, CMP #### [facility] [address] [address] [address] Dayna Maldonado Glucose [Mass/Vol] 100 mg/dL Normal 74-106 [facility] Comment on above: Performed By: #### F T3, LIPID, TSH, CMP #### [facility] [address] [address] [address] Dayna Maldonado Potassium [Moles/Vol] 4.1 mmol/L Normal 3.5-5.1 [facility] Comment on above: Performed By: #### F T3, LIPID, TSH, CMP #### [facility] [address] [address] [address] Dayna Maldonado Protein [Mass/Vol] 7.6 g/dL Normal 6.4-8.2 [facility] Comment on above: Performed By: #### F T3, LIPID, TSH, CMP #### [facility] [address] [address] [address] Dayna Maldonado Sodium [Moles/Vol] 141 mmol/L Normal 136-145 [facility] Comment on above: Performed By: #### F T3, LIPID, TSH, CMP #### [facility] [address] [address] [address] Dayna Maldonado Urea nitrogen [Mass/Vol] 12.0 mg/dL Normal 7.0-18.0 [facility] Comment on above: Performed By: #### F T3, LIPID, TSH, CMP #### [facility] [id number] Dayna Maldonado Urea nitrogen/Creatinine [Mass ratio] 12.6 mg/mg Normal [facility] Comment on above: Performed By: #### F T3, LIPID, TSH, CMP #### [facility] [address] [address] [address] Dayna Maldonado TSHon 11-16-2021 TSH 0.973 uIU/mL Normal 0.358-3.740 [facility] Comment on above: Performed By: #### F T3, LIPID, TSH, CMP #### [facility] [address] [address] [address] Dayna Maldonado XR chest 1Von 08-18-2021 XR chest 1V [facility] [place] [address] XRay Report Signed Patient: Dominick Silverio MR#: [id number] 45 : 1995 Acct:[id number] Age/Sex: 26 / M ADM Date: 08/18/21 Loc: [place] Room: Type: [facility] REF Attending Dr[facility] Arcad[facility] Copies to: Arcadio Germain DO Ordering Provider: [...] Sanchez Jr., D.O.08/18/2021 10:25 AM Dictation Location: [place] [address] Transcribed By: [facility] 08/18/21 1025 Dictated By: Brandon Sanchez Jr, DO 08/18/21 1025 Signed By: 08/18/21 1025 [facility] Encounters Encounter Date Encounter Type Care Provider Facility Start: 11-20-2021 ambulatory ERIK SHAMMO Facility:[facility] 1 Start: 11-18-2021 Encounter for genera l adult medical examination without abnormal findings ERIK SHAMMO [facility] Start: 11-16-2021 End: 11-17-2021 ambulatory ERIK SHAMMO Facility:[facility] Start: 11-16-2021 End: 11-17-2021 Encounter for general adult medical examination without abnormal findings ERIK SHAMMO Facility:[facility] Start: 08-18-2021 End: 08-18-2021 Departed Referred DO Arcadio Germain Work Phone: [facility] [address] Payers Date Payer Category Payer Unknown [id number] 1995 Unknown [id number] 1957 Private Health Insurance [id number] 1957 Self-pay Social History Date Type Detail Facility Tobacco smoking stat [facility] Unknown if ever smoked [facility] Work Phone: Start: 1995 Sex Assigned At Male [facility] Evaluation note Note Date & Type Note Facility Evaluation note No assessment information availa ble [facility] Work Phone: Chief Complaint and Reason for Visit Chief Complaint WORK Summary Purpose Family History No Family History Records FoundNo Family History Records Found Advance Directives No Advanced Directives Records FoundNo Advanced Directives Records Found Additional Source Comments Care Teams (unrecognized sec tion and content) Team Status: Inactive Member Role Status Dates Arcadio Germain DO [facility] Attending Provider Active Goals (unrecognized section and content) Goals may be documented in a n alternate section (unrecognized sect ion and content) No Status Records FoundNo Status Records Found INFORMATION SOURCE (unrecogn ized section and content) DATE CREATED AUTHOR 08/19/[address] [facility] DATE CREATED AUTHOR AUTHORMiracle ROONEY 11/21/2021 The [...] BE BASED ON THE PRIMARY CLINICAL RECORDS. [employer] provides no warranty or guarantee of the accuracy or completeness of information in this document.
[2024-02-05 17:33] VITALS: BP 175/90; PULSE 77; TEMP 37.2; O2SAT 98; BMI 44.3
--- NOTE | 2024-02-05 17:39 | ED_ITS ---
HPI - Abdominal Pain General Chief Complaint: Abdominal Pain Stated Complaint: FLANK PAIN/BACK PAIN Time Seen by Provider: 02/05/24 17:31 Source: patient Mode of arrival: walk-in Limitations: no limitations History of Present Illness HPI narrative: Patient is a 28-year-old male who returns to the emergency department for pain in the left flank. He was seen in this emergency department last night and diagnosed with a 3 mm stone in the left distal ureter. He was medicated and was feeling much better at discharge. Today he returns because he states he needs a work note, he has not had a bowel movement in two days and he did not think that his pain would last 24 hours. He has had kidney stones in the past. He states usually after he is medicated the pain goes away and then he is good to go . He has not had any fevers or vomiting. Related Data Previous Rx's ?Medication ?Instructions ?Recorded ondansetron HCl 4 mg tablet 4 mg PO Q8H 3 days #9 tabs 02/04/24 tamsulosin 0.4 mg capsule (Flomax) 0.4 mg PO DAILY #5 caps 02/04/24 Allergies Allergy/AdvReac Type Severity Reaction Status Date / Time No Known Drug Allergies Allergy Verified 02/05/24 17:33 Review of Systems ROS Constitutional Denies: fever or chills Ears, nose, mouth, and throat Denies: throat pain Cardiovascular Denies: chest pain Respiratory Denies: shortness of breath Gastrointestinal Reports: abdominal pain; Denies: nausea, vomiting or diarrhea Musculoskeletal Reports: back pain; Denies: neck pain Integumentary/Breast Denies: rash Neurological Denies: numbness in extremities or weakness in extremities Hematologic/Lymphatic Denies: easy bruising or easy bleeding PFSH PFSH Social History Smoking status: Never smoker Little interest or pleasure in doing things: not at all Feeling down, depressed, or hopeless: not at all Exam Narrative Exam Narrative: Gen.: Awake, alert, in no distress Head: Normocephalic, atraumatic ENT: Moist mucous membranes Respiratory: No respiratory distress, lungs clear bilaterally Cardio: Regular rate and rhythm Gastrointestinal: Abdomen is soft, nondistended and nontender to palpation; no CVA tenderness Extremities: Moves extremities equally, no injuries noted Psych: Normal mood and affect Neuro: No focal neuro deficit Skin: Warm, dry, intact Constitutional Vital Signs, click to edit/add: Last Vital Signs Temp 98.9 F 02/05/24 17:33 Pulse 77 02/05/24 17:33 Resp 16 02/05/24 17:33 BP 175/90 H 02/05/24 17:33 Pulse Ox 98 02/05/24 17:33 O2 Del Method Room Air 02/05/24 17:33 Course Vital Signs Vital signs: Vital Signs Temperature 98.9 F 02/05/24 17:33 Pulse Rate 77 02/05/24 17:33 Respiratory Rate 16 02/05/24 17:33 Blood Pressure 175/90 H 02/05/24 17:33 Pulse Oximetry 98 02/05/24 17:33 Oxygen Delivery Method Room Air 02/05/24 17:33 Temperature 98.9 F 02/05/24 17:33 Pulse Rate 77 02/05/24 17:33 Respiratory Rate 16 02/05/24 17:33 Blood Pressure 175/90 H 02/05/24 17:33 Pulse Oximetry 98 02/05/24 17:33 Oxygen Delivery Method Room Air 02/05/24 17:33 MDM - Abdominal Pain MDM Narrative Medical decision making narrative: Patient medicated for pain with Dilaudid, Toradol, Zofran. He was given IV fluids. He is hemodynamically stable, however his white blood cell count is elevated to 26.9. Lactic acid is normal and the patient has acute kidney injury with creatinine increasing from 1.2-1.8. Case is discussed with Dr. Ferreira for urology and he recommended the patient be admitted, n.p.o. after midnight and to strain all of his urine. He was given IV Rocephin. Stable at time of admission to hospitalist service. SHARED APC VISIT, PHYSICIAN ATTESTATION: [id number] I performed a substantive part of the MDM during the patient?s E/M visit. I personally evaluated and examined the patient. I personally made or approved the documented management plan and acknowledge its risk of complications. Medical Records Attestation: I reviewed the patient's medical records. Lab Data Attestation: I reviewed the patient's lab results. Labs: Lab Results 02/05/24 02/05/24 Range/Units 17:45 19:04 WBC 26.9 H (4.0-11.0) 10^3/uL RBC 5.10 (4.70-6.10) 10^6/uL Hgb 15.2 (14.0-18.0) g/dL Hct 43.5 (42.0-54.0) % MCV 85.3 (80.0-94.0) fL MCH 29.8 (25.9-34.0) pg MCHC 34.9 (29.9-35.2) g/dL RDW 13.0 (11.0-15.0) % Plt Count 222 (150-450) 10^3/uL MPV 10.1 (9.5-13.5) fL Seg Neuts % (Manual) 61.0 (43.0-75.0) Band Neutrophils % 3.0 (0-5) % Lymphocytes % (Manual) 29.0 (20.5-60.0) % Monocytes % (Manual) 7.0 (1.7-12.0) % Eosinophils % (Manual) 0.0 L (0.9-7.0) % Basophils % (Manual) 0.0 L (0.2-2.0) % Neutrophils # (Manual) 16.40 H (1.4-6.5) 10^3/uL Band Neutrophils # 0.8 H (0.0-0.3) 10^3/uL Lymphocytes # (Manual) 7.80 H (1.20-3.80) 10^3/uL Monocytes # (Manual) 1.88 H (0.30-0.80) 10^3/uL Eosinophils # (Manual) 0.00 (0.00-0.70) 10^3/uL Basophils # (Manual) 0.00 (0.00-0.10) 10^3/uL Sodium 141 (136-145) mmol/L Potassium 4.1 (3.5-5.1) mmol/L Chloride 103 (98-107) mmol/L Carbon Dioxide 24.6 (21.0-32.0) mmol/L Anion Gap 17.5 BUN 17.0 (7.0-18.0) mg/dL Creatinine 1.84 H (0.70-1.30) mg/dL Est GFR ( Amer) 54 L (>=60 mL/min/1.73m^2) Est GFR (Non-Af Amer) 45 L (>=60 mL/min/1.73m^2) BUN/Creatinine Ratio 9.2 Glucose 121 H (74-106) mg/dL Lactate 1.3 (0.4-2.0) mmol/L Calcium 9.2 (8.5-10.1) mg/dL Total Bilirubin 0.9 (0.2-1.0) mg/dL AST 29 (15-37) U/L ALT 43 (16-63) U/L Alkaline Phosphatase 50 (46-116) U/L Total Protein 7.4 (6.4-8.2) g/dL Albumin 4.3 (3.4-5.0) g/dL Globulin 3.1 g/dL Albumin/Globulin Ratio 1.4 Urine Color Yellow (YELLOW) Urine Clarity Clear (CLEAR) Urine pH 6.0 (5.0-9.0) Ur Specific [place] 1.025 (1.005-1.025) Urine Protein Negative (NEG/TRACE) mg/dL Urine Glucose (UA) Negative (NEGATIVE) mg/dL Urine Ketones Trace A (NEGATIVE) mg/dL Urine Occult Blood Negative (NEGATIVE) Urine Nitrite Negative (NEGATIVE) Urine Bilirubin Negative (NEGATIVE) Urine Urobilinogen 0.2 (0.2-1.0) EU/dL Ur Leukocyte Esterase Negative (NEGATIVE) Imaging Data CT scan - abdomen: Attestation: I have reviewed the pertinent imaging results. Radiologist's impression: ITS Impressions Abdomen/Pelvis CT 02/05/24 19:34 IMPRESSION: 1. Mild left hydronephrosis-hydroureter secondary to an obstructing calculus in the distal left ureter approximately 1 cm from the bladder. Calculus by my measurement 4.3 mm. Calculus has moved slightly more distally since 02/04/2024 2. Nonobstructing left and right renal calculi. 3. No new abnormality. Electronically authenticated by: TERELL BLANKENSHIP Date: 02/05/2024 21:30 Discharge Plan Discharge Chief Complaint: Abdominal Pain Patient Disposition: Admitted as Observation Time of Disposition Decision: 21:44 Prescriptions / Home Meds: No Action tamsulosin [Flomax] 0.4 mg capsule 0.4 mg PO DAILY Qty: 5 0RF ondansetron HCl 4 mg tablet 4 mg PO Q8H 3 Days Qty: 9 0RF Print Language: Luxem[place]ish Referrals: Physician,Non-Staff, MD [Primary Care Provider] - 1 week
[2024-02-05] MEDS: ONDANSETRON PF 4 MG/2 ML VIAL IV (17:55)
[2024-02-05] MEDS: 0.9 % SODIUM CHLORIDE 1,000 ML 1000 ML IV (17:55)
[2024-02-05] MEDS: KETOROLAC TROMETHAMINE 30 MG/ML VIAL IVP (17:57)
[2024-02-05] MEDS: HYDROMORPHONE HCL 1 MG/ML CARTRIDGE IV (17:58)
[2024-02-05 18:01] LABS: Hematocrit 43.5 % (42.0-54.0); Hemoglobin 15.2 g/dL (14.0-18.0); Mean Corpuscular HGB Conc 34.9 g/dL (29.9-35.2); Mean Corpuscular Hemoglobin 29.8 pg (25.9-34.0); Mean Corpuscular Volume 85.3 fL (80.0-94.0); Mean Platelet Volume 10.1 fL (9.5-13.5); Platelet Count 222 10^3/uL (150-450); White Blood Count 26.9 10^3/uL (4.0-11.0)
[2024-02-05 18:18] LABS: Alanine Aminotransferase 43 U/L (16-63); Albumin Globulin Ratio 1.4; Albumin Level 4.3 g/dL (3.4-5.0); Alkaline Phosphatase 50 U/L (46-116); Anion Gap 17.5; Aspartate Amino Transferase 29 U/L (15-37); BUN Creatinine Ratio 9.2; Bilirubin Total 0.9 mg/dL (0.2-1.0); Calcium 9.2 mg/dL (8.5-10.1); Carbon Dioxide 24.6 mmol/L (21.0-32.0); Chloride 103 mmol/L (98-107); Estimated GFR (African America 54 (>=60 mL/min/1.73m^2); Estimated GFR (Non-African Ame 45 (>=60 mL/min/1.73m^2); Globulin 3.1 g/dL; Glucose 121 mg/dL (74-106); Potassium 4.1 mmol/L (3.5-5.1); Sodium 141 mmol/L (136-145); Total Protein 7.4 g/dL (6.4-8.2)
[2024-02-05 18:22] LABS: Band Neutrophils Absolute 0.8 10^3/uL (0.0-0.3); Monocytes Absolute Manual 1.88 10^3/uL (0.30-0.80)
[2024-02-05 19:10] LABS: Lactate/Lactic Acid 1.3 mmol/L (0.4-2.0)
[2024-02-05 19:21] LABS: Bilirubin Urine NEGATIVE (NEGATIVE); Blood Urine NEGATIVE (NEGATIVE); Clarity Urine CLEAR (CLEAR); Color Urine YELLOW (YELLOW); Glucose Urine UA NEGATIVE (NEGATIVE); Ketones Urine TRACE mg/dL (NEGATIVE); Leukocyte Esterase Urine NEGATIVE (NEGATIVE); Nitrite Urine NEGATIVE (NEGATIVE); Protein Urine NEGATIVE (NEG/TRACE); Specific Gravity Urine 1.025 (1.005-1.025); Urobilinogen Urine 0.2 EU/dL (0.2-1.0)
[2024-02-05 19:22] LABS: Urine Microscopic Indicated NO
--- NOTE | 2024-02-05 19:34 | CT_ITS ---
[address] [address] Patient Name: DOMINICK BUCK MRN: [id number] date: 1995 Sex: M Assigned Patient Location: ED.MAIN Current Patient Location: Accession/Order Number: [id number] Exam Date: 02/05/2024 20:05 Report Date: 02/05/2024 21:30 At the request of: MARCELINA SHERMAN Procedure: CT abdomen pelvis wo con EXAM: CT abdomen pelvis wo con HISTORY: Flank pain . Worsening left flank pain. Ureteral calculus seen on recent CT. COMPARISON: CT scans 02/04/2024, 04/20/2023. TECHNIQUE: CT abdomen pelvis without contrast. Axial scans with reformatted coronal sagittal images. Individualized radiation dose reduction used for this exam. FINDINGS: Lower chest: Lung bases clear, no acute process. ABDOMEN: Kidneys/urinary tract: Mild left hydronephrosis and ureter secondary to obstructing distal left ureteral calculus near the bladder. Calculus is moves slightly distal compared to 02/04/2024. Calculus by my measurements 4.3 mm. Proximally 1 cm from the ureterovesical junction There are nonobstructing left renal calculi less than 3 mm diameter unchanged. Right renal calculus millimeters mid kidney nonobstructing. Normal right ureter. Unchanged. Remaining solid organs unremarkable. Normal gallbladder. No adenopathy. No ascites or free fluid. Normal size aorta no bowel dilatation ileus or obstruction. Normal appendix right lower quadrant. PELVIS: Calculus distal left pelvic ureter slightly more distal than previous. Right pelvic ureter unremarkable. Small amount of fluid in the bladder. No mass or adenopathy. Prostate not enlarged. MUSCULOSKELETAL: No suspicious bone lesion. Fat-containing inguinal hernias. CT/CT abdomen pelvis wo con IMPRESSION: 1. Mild left hydronephrosis-hydroureter secondary to an obstructing calculus in the distal left ureter approximately 1 cm from the bladder. Calculus by my measurement 4.3 mm. Calculus has moved slightly more distally since 02/04/2024 2. Nonobstructing left and right renal calculi. 3. No new abnormality. Electronically authenticated by: TERELL BLANKENSHIP Date: 02/05/2024 21:30
[2024-02-05 22:00] VITALS: PULSE 73
[2024-02-05] MEDS: CEFTRIAXONE 2,000 MG in 0.9 % SODIUM CHLORIDE 100 ML 200 MG IV (22:04)
[2024-02-05 22:12] VITALS: BP 124/73
--- OUTSIDE RECORDS SUMMARY | 2024-02-05 22:22 | XMS_ITS | CCD ---
Author Organization [facility] Care Team Providers Care Equity Manager Name Role Phone Harishkia DO Arcadio Catalan Attending Provider [phone] SHAMMO, ERIK Admitting Unavailable SHAMMO, ERIK Attending [...] QUANTon 11-17-2021 HCV AB <0.1 Normal 0.0-0.9 [facility] Comment on above: Performed By: #### H CVPCRR #### [facility] [address] [address] [address] Dayna Maldonado Interpretation: Comment Normal [facility] Comment on above: Result Comment: Nega tive Not infected with HCV, unless recent infection is suspected or other evidence exists to indicate HCV infection. Performed By: #### H CVPCRR #### [facility] [address] [address] [address] Dayna Maldonado CBC AUTO DIFFon 11-16-2021 BASO # 0.1 103/ul Normal 0.0-0.1 [facility] Comment on above: Performed By: #### C BC #### [facility] [address] [address] [address] Dayna Maldonado Basophils/100 WBC (Bld) 0.4 % Normal 0.2-2.0 [facility] Comment on above: Performed By: #### C BC #### [facility] [address] [place] [address] Dr. Dayna Maldonado EO # 0.5 103/ul Normal 0.0-0.7 [facility] Comment on above: Performed By: #### C BC #### [facility] [address] [place] [address] Dr. Dayna Maldonado Eosinophils/100 WBC (Bld) 4.1 % Normal 0.9-7.0 [facility] Comment on above: Performed By: #### C BC #### [facility] [address] [place] [address] Dr. Dayna Maldonado Erythrocyte distribution width (RBC) [Ratio] 12.9 % Normal 11.0-15.0 [facility] Comment on above: Performed By: #### C BC #### [facility] [address] [place] [address] Dr. Dayna Maldonado Hematocrit (Bld) [Volume fraction] 45.6 % Normal 42.0-54.0 [facility] Comment on above: Performed By: #### C BC #### [facility] [address] [place] [address] Dr. Dayna Maldonado Hemoglobin (Bld) [Mass/Vol] 15.2 g/dL Normal 14.0-18.0 [facility] Comment on above: Performed By: #### C BC #### [facility] [address] [place] [address] Dr. Dayna Maldnoado IG # 0.08 10e3/ul Critically high 0.00-0.03 [facility] Comment on above: Performed By: #### C BC #### [facility] [address] [place] [address] Dr. Dayna Maldonado IG % 0.7 % Critically high 0.0-0.5 [facility] Comment on above: Performed By: #### C BC #### [facility] [address] [place] [address] Dr. Dayna Maldonado LYMPH # 4.5 103/ul Critically high 1.2-3.8 [facility] Comment on above: Performed By: #### C BC #### [facility] [address] [place] [address] Dr. Dayna Maldonado Lymphocytes/100 WBC (Bld) 39.6 % Normal 20.5-60.0 [facility] Comment on above: Performed By: #### C BC #### [facility] [address] [place] [address] Dr. Dayna Maldonado MANUAL DIFF REQ NO Normal [facility] Comment on above: Performed By: #### C BC #### [facility] [address] [place] [address] Dr. Dayna Maldonado MCH (RBC) [Entitic mass] 28.5 pg Normal 25.9-34.0 [facility] Comment on above: Performed By: #### C BC #### [facility] [address] [place] [address] Dr. Dayna Maldonado MCHC (RBC) [Mass/Vol] 33.3 g/dL Normal 29.9-35.2 [facility] Comment on above: Performed By: #### C BC #### [facility] [address] [place] [address] Dr. Dayna Maldonado MCV (RBC) [Entitic vol] 85.6 fL Normal 80.0-94.0 [facility] Comment on above: Performed By: #### C BC #### [facility] [address] [place] [address] Dr. Dayna Maldonado MONO # 0.9 103/ul Critically high 0.3-0.8 [facility] Comment on above: Performed By: #### C BC #### [facility] [address] [place] [address] Dr. Dayna Maldonado Monocytes/100 WBC (Bld) 7.8 % Normal 1.7-12.0 [facility] Comment on above: Performed By: #### C BC #### [facility] [address] [place] [address] Dr. Dayna Maldonado NEUT # 5.4 103/ul Normal 1.4-6.5 [facility] Comment on above: Performed By: #### C BC #### [facility] [address] [address] [address] Dayna Maldonado Neutrophils/100 WBC (Bld) 47.4 % Normal 43.0-75.0 [facility] Comment on above: Performed By: #### C BC #### [facility] [address] [address] [address] Dayna Maldonado Platelet mean volume (Bld) [Entitic vol] 9.9 fL Normal 9.5-13.5 [facility] Comment on above: Performed By: #### C BC #### [facility] [address] [place] [address] Dr. Dayna Maldonado PLT 194 103/ul Normal 150-450 [facility] Comment on above: Performed By: #### C BC #### [facility] [address] [place] [address] Dr. Dayna Maldonado RBC 5.33 106/ul Normal 4.70-6.10 [facility] Comment on above: Performed By: #### C BC #### [facility] [address] [address] [address] Dayna Maldonado WBC 11.4 103/ul Critically high 4.0-11.0 [facility] Comment on above: Performed By: #### C BC #### [facility] [address] [place] [address] Dr. Dayna Maldonado FREE T3on 11-16-2021 FREE T3 2.82 pg/mlL Normal 2.18-3.98 [facility] Comment on above: Performed By: #### F T3, LIPID, TSH, CMP #### [facility] [address] [address] [address] Dayna Maldonado FREE T4on 11-16-2021 Free T4 [Mass/Vol] 0.96 ng/dL Normal 0.76-1.46 [facility] Comment on above: Performed By: #### F T4 #### [facility] [address] [place] [address] Dr. Dayna Maldonado GLYCOHEMOGLOBIN A1Con 2021 ADA RECOMMENDATION SEE BELOW Normal [facility] Comment on above: Result Comment: ADA RECOMMENDED LIMIT 4.0 - 6.0 ADA THERAPEUTIC TARGET < 7.0 ACTION SUGGESTED > 7.0 Performed By: #### A 1C #### [facility] [address] [address] [address] Dayna Maldonado Glucose [Mass/Vol] 111 mg/dL Normal [facility] Comment on above: Performed By: #### A 1C #### [facility] [address] [address] [address] Dayna Maldonado HbA1c (Bld) [Mass fraction] 5.5 % Normal 4.5-6.2 [facility] Comment on above: Performed By: #### A 1C #### [facility] [address] [place] [address] Dr. Dayna Maldonado LIPID PROFILEon 11-16-2021 CHOL-HDL RATIO NORM SEE BELOW Normal [facility] Comment on above: Result Comment: 3.3 - 4.4 LOW RISK 4.4 - 7.1 AVERAGE RISK 7.1 - 11.0 MODERATE RISK >11.0 HIGH RISK Performed By: #### F T3, LIPID, TSH, CMP #### [facility] [address] [place] [address] Dr. Dayna Maldonado Cholesterol [Mass/Vol] 153 mg/dL Normal <=200 [facility] Comment on above: Performed By: #### F T3, LIPID, TSH, CMP #### [facility] [address] [place] [address] Dr. Dayna Maldonado Cholesterol in HDL [Mass/Vol] 30 mg/dL Critically low 40-60 [facility] Comment on above: Performed By: #### F T3, LIPID, TSH, CMP #### [facility] [address] [place] [address] Dr. Dayna Maldonado Cholesterol in LDL [Mass/Vol] 96.0 mg/dL Normal [facility] Comment on above: Performed By: #### F T3, LIPID, TSH, CMP #### [facility] [address] [place] [address] Dr. Dayna Maldonado Cholesterol.total/Cho lesterol in HDL [Mass ratio] 5.1 {ratio} Normal [facility] Comment on above: Performed By: #### F T3, LIPID, TSH, CMP #### [facility] [address] [address] [address] Dayna Maldonado HDL NORMAL > or = 60 mg/dl - LOW CARDIOVASCULAR RISK <40 mg/dl - HIGH CARDIOVASCULAR RISK Normal [facility] Comment on above: Performed By: #### F T3, LIPID, TSH, CMP #### [facility] [address] [place] [address] Dr. Dayna Maldonado LDL CALC NORMAL SEE BELOW Normal [facility] Comment on above: Result Comment: <100 mg/dl OPTIMAL 100 - 129 mg/dl NEAR OR ABOVE OPTIMAL 130 - 159 mg/dl BORDERLINE HIGH 160 - 189 mg/dl HIGH >190 mg/dl VERY HIGH Performed By: #### F T3, LIPID, TSH, CMP #### [facility] [address] [place] [address] Dr. Dayna Maldonado Triglyceride [Mass/Vol] 135 mg/dL Normal <=150 [facility] Comment on above: Performed By: #### F T3, LIPID, TSH, CMP #### [facility] [address] [place] [address] Dr. Dayna Maldonado VLDL CALC 27.0 mg/dL Normal [facility] Comment on above: Performed By: #### F T3, LIPID, TSH, CMP #### [facility] [address] [place] [address] Dr. Dayna Maldonado PROF 14(COMP METB)on 022 Albumin [Mass/Vol] 4.5 g/dL Normal 3.4-5.0 [facility] Comment on above: Performed By: #### F T3, LIPID, TSH, CMP #### [facility] [address] [place] [address] Dr. Dayna Maldonado Albumin/Globulin [Mass ratio] 1.5 {ratio} Normal [facility] Comment on above: Performed By: #### F T3, LIPID, TSH, CMP #### [facility] [address] [place] [address] Dr. Dayna Maldonado ALP [Catalytic activity/Vol] 49 U/L Normal 46-116 [facility] Comment on above: Performed By: #### F T3, LIPID, TSH, CMP #### [facility] [address] [place] [address] Dr. Dayna Maldonado ALT [Catalytic activity/Vol] 37 U/L Normal 16-63 [facility] Comment on above: Performed By: #### F T3, LIPID, TSH, CMP #### [facility] [address] [place] [address] Dr. aDyna Maldonado Anion gap [Moles/Vol] 13.9 mmol/L Normal [facility] Comment on above: Performed By: #### F T3, LIPID, TSH, CMP #### [facility] [address] [place] [address] Dr. Dayna Maldonado AST [Catalytic activity/Vol] 20 U/L Normal 15-37 [facility] Comment on above: Performed By: #### F T3, LIPID, TSH, CMP #### [facility] [address] [place] [address] Dr. Dayna Maldonado Bilirubin [Mass/Vol] 0.5 mg/dL Normal 0.2-1.0 [facility] Comment on above: Performed By: #### F T3, LIPID, TSH, CMP #### [facility] [address] [place] [address] Dr. Dayna Maldonado Calcium [Mass/Vol] 9.3 mg/dL Normal 8.5-10.1 [facility] Comment on above: Performed By: #### F T3, LIPID, TSH, CMP #### [facility] [address] [place] [address] Dr. Dayna Maldonado Chloride [Moles/Vol] 104 mmol/L Normal 98-107 [facility] Comment on above: Performed By: #### F T3, LIPID, TSH, CMP #### [facility] [address] [place] [address] Dr. Dayna Maldonado CO2 [Moles/Vol] 27.2 mmol/L Normal 21.0-32.0 [facility] Comment on above: Performed By: #### F T3, LIPID, TSH, CMP #### [facility] [address] [address] [address] Dayna Maldonado Creatinine [Mass/Vol] 0.95 mg/dL Normal 0.70-1.30 [facility] Comment on above: Performed By: #### F T3, LIPID, TSH, CMP #### [facility] [address] [address] [address] Dayna Maldonado EGFR-AF MARTINIQUAIS >60 Normal >=60 [facility] Comment on above: Performed By: #### F T3, LIPID, TSH, CMP #### [facility] [address] [address] [address] Dayna Maldonado EGFR-NON AF MARTINIQUAIS >60 Normal >=60 [facility] Comment on above: Performed By: #### F T3, LIPID, TSH, CMP #### [facility] [address] [address] [address] Dayna Maldonado Globulin (S) [Mass/Vol] 3.1 g/dL Normal [facility] Comment on above: Performed By: #### F T3, LIPID, TSH, CMP #### [facility] [address] [address] [address] Dayna Maldonado Glucose [Mass/Vol] 100 mg/dL Normal 74-106 [facility] Comment on above: Performed By: #### F T3, LIPID, TSH, CMP #### [facility] [address] [address] [address] Dayna Maldonado Potassium [Moles/Vol] 4.1 mmol/L Normal 3.5-5.1 [facility] Comment on above: Performed By: #### F T3, LIPID, TSH, CMP #### [facility] [address] [address] [address] Dayna Maldonado Protein [Mass/Vol] 7.6 g/dL Normal 6.4-8.2 [facility] Comment on above: Performed By: #### F T3, LIPID, TSH, CMP #### [facility] [address] [address] [address] Dayna Maldonado Sodium [Moles/Vol] 141 mmol/L Normal 136-145 [facility] Comment on above: Performed By: #### F T3, LIPID, TSH, CMP #### [facility] [address] [address] [address] Dayna Maldonado Urea nitrogen [Mass/Vol] 12.0 mg/dL Normal 7.0-18.0 [facility] Comment on above: Performed By: #### F T3, LIPID, TSH, CMP #### [facility] [address] [address] Dayna Maldonado Urea nitrogen/Creatinine [Mass ratio] 12.6 mg/mg Normal [facility] Comment on above: Performed By: #### F T3, LIPID, TSH, CMP #### [facility] [address] [address] [address] Dayna Maldonado TSHon 11-16-2021 TSH 0.973 uIU/mL Normal 0.358-3.740 [facility] Comment on above: Performed By: #### F T3, LIPID, TSH, CMP #### [facility] [address] [address] [address] Dayna Maldonado XR chest 1Von 08-18-2021 XR chest 1V [place] [address] XRay Report Signed Patient: Dominick Silverio MR#: [id number] 45 : 1995 Acct:[id number] Age/Sex: 26 / M ADM Date: 08/18/21 Loc: [place] Room: Type: [facility] REF Attending Dr[facility]cad[facility] Copies to: Arcadio Germain DO Ordering [...] Sanchez Jr., D.O.08/18/2021 10:25 AM Dictation Location: [place] [address] Transcribed By: [facility] 08/18/21 1025 Dictated By: Brandon Sanchez Jr, DO 08/18/21 1025 Signed By: 08/18/21 1025 [facility] Encounters Encounter Date Encounter Type Care Provider Facility Start: 11-20-2021 ambulatory ERIK SHAMMO Facility:[facility] 1 Start: 11-18-2021 Encounter for genera l adult medical examination without abnormal findings ERIK SHAMMO [facility] Start: 11-16-2021 End: 11-17-2021 ambulatory ERIK SHAMMO Facility:[facility] Start: 11-16-2021 End: 11-17-2021 Encounter for general adult medical examination without abnormal findings ERIK SHAMMO Facility:[facility] Start: 08-18-2021 End: 08-18-2021 Departed Referred DO Arcadio Germain Work Phone: [facility] [address] Payers Date Payer Category Payer Unknown [id number] 1995 Unknown [id number] 1959 Private Health Insurance [id number] 1957 Self-pay Social History Date Type Detail Facility Tobacco smoking stat [facility] Unknown if ever smoked [facility] Work Phone: Start: 1995 Sex Assigned At Male [facility] Evaluation note Note Date & Type Note Facility Evaluation note No assessment information availa ble [facility] Work Phone: Chief Complaint and Reason for Visit Chief Complaint WORK Summary Purpose Family History No Family History Records FoundNo Family History Records Found Advance Directives No Advanced Directives Records FoundNo Advanced Directives Records Found Additional Source Comments Care Teams (unrecognized sec tion and content) Team Status: Inactive Member Role Status Dates Arcadio Germain DO [facility] Attending Provider Active Goals (unrecognized section and content) Goals may be documented in a n alternate section (unrecognized sect ion and content) No Status Records FoundNo Status Records Found INFORMATION SOURCE (unrecogn ized section and content) DATE CREATED AUTHOR 08/19/2021 [facility] DATE CREATED AUTHOR AUTHORMiracle ROONEY 11/21/2021 [...] BE BASED ON THE PRIMARY CLINICAL RECORDS. [employer] provides no warranty or guarantee of the accuracy or completeness of information in this document.
[2024-02-05 22:30] VITALS: BMI 63.9
[2024-02-05 22:48] VITALS: BP 140/79; PULSE 66; TEMP 36.8; O2SAT 97
[2024-02-05] MEDS: 0.9 % SODIUM CHLORIDE 1,000 ML 125 ML IV (22:52)
[2024-02-05] MEDS: TAMSULOSIN HCL 0.4 MG CAPSULE PO (22:52)
[2024-02-06] VITALS (15 sets, daily range): BP systolic 95–153; BP diastolic 69–94; PULSE 70–109; TEMP 35–36.9; O2SAT 92–97; BMI 46.7
--- NOTE | 2024-02-06 | FL_ITS ---
[address] [address] Patient Name: DOMINICK BUCK MRN: [id number] date: 1995 Sex: M Assigned Patient Location: [place] Current Patient Location: [place] Accession/Order Number: [id number] Exam Date: 02/06/2024 12:10 Report Date: 02/14/2024 08:42 At the request of: JAI FISHER Procedure: FL fluoroscopy <1hr NON-READ EXAM: FL fluoroscopy <1hr NON-READ HISTORY: TECHNIQUE: FINDINGS: Please see Operative Report. Electronically authenticated by: RADIOLOGIST NO Date: 02/14/2024 08:42
[2024-02-06] MEDS: HYDROMORPHONE HCL 1 MG/ML CARTRIDGE IVP ×3 (01:12→08:57)
[2024-02-06] MEDS: 0.9 % SODIUM CHLORIDE 1,000 ML 125 ML IV (05:31)
--- OUTSIDE RECORDS SUMMARY | 2024-02-06 06:06 | XMS_ITS | CCD ---
Author Organization [facility] Care Team Providers Care Ballast Inspector Name Role Phone Harishkia DO Arcadio Catalan [...] QUANTon 11-17-2021 HCV AB <0.1 Normal 0.0-0.9 [facility] Comment on above: Performed By: #### H CVPCRR #### [facility] [address] [address] [address] Dayna Maldonado Interpretation: Comment Normal [facility] Comment on above: Result Comment: Nega tive Not infected with HCV, unless recent infection is suspected or other evidence exists to indicate HCV infection. Performed By: #### H CVPCRR #### [facility] [address] [address] [address] Dayna Maldonado CBC AUTO DIFFon 11-16-2021 BASO # 0.1 103/ul Normal 0.0-0.1 [facility] Comment on above: Performed By: #### C BC #### [facility] [address] [address] [address] Dayna Maldonado Basophils/100 WBC (Bld) 0.4 % Normal 0.2-2.0 [facility] Comment on above: Performed By: #### C BC #### [facility] [address] [place] [address] Dr. Dayna Maldonado EO # 0.5 103/ul Normal 0.0-0.7 [facility] Comment on above: Performed By: #### C BC #### [facility] [address] [place] [address] Dr. Dayna Maldonado Eosinophils/100 WBC (Bld) 4.1 % Normal 0.9-7.0 [facility] Comment on above: Performed By: #### C BC #### [facility] [address] [place] [address] Dr. Dayna Maldonado Erythrocyte distribution width (RBC) [Ratio] 12.9 % Normal 11.0-15.0 [facility] Comment on above: Performed By: #### C BC #### [facility] [address] [place] [address] Dr. Dayna Maldonado Hematocrit (Bld) [Volume fraction] 45.6 % Normal 42.0-54.0 [facility] Comment on above: Performed By: #### C BC #### [facility] [address] [place] [address] Dr. Dayna Maldonado Hemoglobin (Bld) [Mass/Vol] 15.2 g/dL Normal 14.0-18.0 [facility] Comment on above: Performed By: #### C BC #### [facility] [address] [place] [address] Dr. Dayna Maldonado IG # 0.08 10e3/ul Critically high 0.00-0.03 [facility] Comment on above: Performed By: #### C BC #### [facility] [address] [place] [address] Dr. Dayna Maldonado IG % 0.7 % Critically high 0.0-0.5 [facility] Comment on above: Performed By: #### C BC #### [facility] [address] [place] [address] Dr. Dayna Maldonado LYMPH # 4.5 103/ul Critically high 1.2-3.8 [facility] Comment on above: Performed By: #### C BC #### [facility] [address] [place] [address] Dr. Dayna Maldonado Lymphocytes/100 WBC (Bld) 39.6 % Normal 20.5-60.0 [facility] Comment on above: Performed By: #### C BC #### [facility] [address] [place] [address] Dr. Dayna Maldonado MANUAL DIFF REQ NO Normal [facility] Comment on above: Performed By: #### C BC #### [facility] [address] [place] [address] Dr. Dayna Maldonado MCH (RBC) [Entitic mass] 28.5 pg Normal 25.9-34.0 [facility] Comment on above: Performed By: #### C BC #### [facility] [address] [place] [address] Dr. Dayna Maldonado MCHC (RBC) [Mass/Vol] 33.3 g/dL Normal 29.9-35.2 [facility] Comment on above: Performed By: #### C BC #### [facility] [address] [place] [address] Dr. Dayna Maldonado MCV (RBC) [Entitic vol] 85.6 fL Normal 80.0-94.0 [facility] Comment on above: Performed By: #### C BC #### [facility] [address] [place] [address] Dr. Dayna Maldonado MONO # 0.9 103/ul Critically high 0.3-0.8 [facility] Comment on above: Performed By: #### C BC #### [facility] [address] [place] [address] Dr. Dayna Maldonado Monocytes/100 WBC (Bld) 7.8 % Normal 1.7-12.0 [facility] Comment on above: Performed By: #### C BC #### [facility] [address] [place] [address] Dr. Dayna Maldonado NEUT # 5.4 103/ul Normal 1.4-6.5 [facility] Comment on above: Performed By: #### C BC #### [facility] [address] [address] [address] Dayna Maldonado Neutrophils/100 WBC (Bld) 47.4 % Normal 43.0-75.0 [facility] Comment on above: Performed By: #### C BC #### [facility] [address] [address] [address] Dayna Maldonado Platelet mean volume (Bld) [Entitic vol] 9.9 fL Normal 9.5-13.5 [facility] Comment on above: Performed By: #### C BC #### [facility] [address] [place] [address] Dr. Dayna Maldonado PLT 194 103/ul Normal 150-450 [facility] Comment on above: Performed By: #### C BC #### [facility] [address] [place] [address] Dr. Dayna Maldonado RBC 5.33 106/ul Normal 4.70-6.10 [facility] Comment on above: Performed By: #### C BC #### [facility] [address] [address] [address] Dayna Maldonado WBC 11.4 103/ul Critically high 4.0-11.0 [facility] Comment on above: Performed By: #### C BC #### [facility] [address] [place] [address] Dr. Dayna Maldonado FREE T3on 11-16-2021 FREE T3 2.82 pg/mlL Normal 2.18-3.98 [facility] Comment on above: Performed By: #### F T3, LIPID, TSH, CMP #### [facility] [address] [address] [address] Dayna Maldonado FREE T4on 11-16-2021 Free T4 [Mass/Vol] 0.96 ng/dL Normal 0.76-1.46 [facility] Comment on above: Performed By: #### F T4 #### [facility] [address] [place] [address] Dr. Dayna Maldonado GLYCOHEMOGLOBIN A1Con 2021 ADA RECOMMENDATION SEE BELOW Normal [facility] Comment on above: Result Comment: ADA RECOMMENDED LIMIT 4.0 - 6.0 ADA THERAPEUTIC TARGET < 7.0 ACTION SUGGESTED > 7.0 Performed By: #### A 1C #### [facility] [address] [address] [address] Dayna Maldonado Glucose [Mass/Vol] 111 mg/dL Normal [facility] Comment on above: Performed By: #### A 1C #### [facility] [address] [address] [address] Dayna Maldonado HbA1c (Bld) [Mass fraction] 5.5 % Normal 4.5-6.2 [facility] Comment on above: Performed By: #### A 1C #### [facility] [address] [place] [address] Dr. Dayna Maldondao LIPID PROFILEon 11-16-2021 CHOL-HDL RATIO NORM SEE BELOW Normal [facility] Comment on above: Result Comment: 3.3 - 4.4 LOW RISK 4.4 - 7.1 AVERAGE RISK 7.1 - 11.0 MODERATE RISK >11.0 HIGH RISK Performed By: #### F T3, LIPID, TSH, CMP #### [facility] [address] [place] [address] Dr. Dayna Maldonado Cholesterol [Mass/Vol] 153 mg/dL Normal <=200 [facility] Comment on above: Performed By: #### F T3, LIPID, TSH, CMP #### [facility] [address] [place] [address] Dr. Dayna Maldonado Cholesterol in HDL [Mass/Vol] 30 mg/dL Critically low 40-60 [facility] Comment on above: Performed By: #### F T3, LIPID, TSH, CMP #### [facility] [address] [place] [address] Dr. Dayna Maldonado Cholesterol in LDL [Mass/Vol] 96.0 mg/dL Normal [facility] Comment on above: Performed By: #### F T3, LIPID, TSH, CMP #### [facility] [address] [place] [address] Dr. Dayna Maldonado Cholesterol.total/Cho lesterol in HDL [Mass ratio] 5.1 {ratio} Normal [facility] Comment on above: Performed By: #### F T3, LIPID, TSH, CMP #### [facility] [address] [address] [address] Dayna Maldonado HDL NORMAL > or = 60 mg/dl - LOW CARDIOVASCULAR RISK <40 mg/dl - HIGH CARDIOVASCULAR RISK Normal [facility] Comment on above: Performed By: #### F T3, LIPID, TSH, CMP #### [facility] [address] [place] [address] Dr. Dayna Maldonado LDL CALC NORMAL SEE BELOW Normal [facility] Comment on above: Result Comment: <100 mg/dl OPTIMAL 100 - 129 mg/dl NEAR OR ABOVE OPTIMAL 130 - 159 mg/dl BORDERLINE HIGH 160 - 189 mg/dl HIGH >190 mg/dl VERY HIGH Performed By: #### F T3, LIPID, TSH, CMP #### [facility] [address] [place] [address] Dr. Dayna Maldonado Triglyceride [Mass/Vol] 135 mg/dL Normal <=150 [facility] Comment on above: Performed By: #### F T3, LIPID, TSH, CMP #### [facility] [address] [place] [address] Dr. Dayna Maldonado VLDL CALC 27.0 mg/dL Normal [facility] Comment on above: Performed By: #### F T3, LIPID, TSH, CMP #### [facility] [address] [place] [address] Dr. Dayna Maldonado PROF 14(COMP METB)on 022 Albumin [Mass/Vol] 4.5 g/dL Normal 3.4-5.0 [facility] Comment on above: Performed By: #### F T3, LIPID, TSH, CMP #### [facility] [address] [place] [address] Dr. Dayna Maldonado Albumin/Globulin [Mass ratio] 1.5 {ratio} Normal [facility] Comment on above: Performed By: #### F T3, LIPID, TSH, CMP #### [facility] [address] [place] [address] Dr. Dayna Maldonado ALP [Catalytic activity/Vol] 49 U/L Normal 46-116 [facility] Comment on above: Performed By: #### F T3, LIPID, TSH, CMP #### [facility] [address] [place] [address] Dr. Dayna Maldonado ALT [Catalytic activity/Vol] 37 U/L Normal 16-63 [facility] Comment on above: Performed By: #### F T3, LIPID, TSH, CMP #### [facility] [address] [place] [address] Dr. Dayna Maldonado Anion gap [Moles/Vol] 13.9 mmol/L Normal [facility] Comment on above: Performed By: #### F T3, LIPID, TSH, CMP #### [facility] [address] [place] [address] Dr. Dayna Maldonado AST [Catalytic activity/Vol] 20 U/L Normal 15-37 [facility] Comment on above: Performed By: #### F T3, LIPID, TSH, CMP #### [facility] [address] [place] [address] Dr. Dayna Maldonado Bilirubin [Mass/Vol] 0.5 mg/dL Normal 0.2-1.0 [facility] Comment on above: Performed By: #### F T3, LIPID, TSH, CMP #### [facility] [address] [place] [address] Dr. Dayna Maldonado Calcium [Mass/Vol] 9.3 mg/dL Normal 8.5-10.1 [facility] Comment on above: Performed By: #### F T3, LIPID, TSH, CMP #### [facility] [address] [place] [address] Dr. Dayna Maldonado Chloride [Moles/Vol] 104 mmol/L Normal 98-107 [facility] Comment on above: Performed By: #### F T3, LIPID, TSH, CMP #### [facility] [address] [place] [address] Dr. Dayna Maldonado CO2 [Moles/Vol] 27.2 mmol/L Normal 21.0-32.0 [facility] Comment on above: Performed By: #### F T3, LIPID, TSH, CMP #### [facility] [address] [address] [address] Dayna Maldonado Creatinine [Mass/Vol] 0.95 mg/dL Normal 0.70-1.30 [facility] Comment on above: Performed By: #### F T3, LIPID, TSH, CMP #### [facility] [address] [address] [address] Dayna Maldonado EGFR-AF JAPANESE >60 Normal >=60 [facility] Comment on above: Performed By: #### F T3, LIPID, TSH, CMP #### [facility] [address] [address] [address] Dayna Maldonado EGFR-NON AF JAPANESE >60 Normal >=60 [facility] Comment on above: Performed By: #### F T3, LIPID, TSH, CMP #### [facility] [address] [address] [address] Dayna Maldonado Globulin (S) [Mass/Vol] 3.1 g/dL Normal [facility] Comment on above: Performed By: #### F T3, LIPID, TSH, CMP #### [facility] [address] [address] [address] Dayna Maldonado Glucose [Mass/Vol] 100 mg/dL Normal 74-106 [facility] Comment on above: Performed By: #### F T3, LIPID, TSH, CMP #### [facility] [address] [address] [address] Dayna Maldonado Potassium [Moles/Vol] 4.1 mmol/L Normal 3.5-5.1 [facility] Comment on above: Performed By: #### F T3, LIPID, TSH, CMP #### [facility] [address] [address] [address] Dayna Maldonado Protein [Mass/Vol] 7.6 g/dL Normal 6.4-8.2 [facility] Comment on above: Performed By: #### F T3, LIPID, TSH, CMP #### [facility] [address] [address] [address] Dayna Maldonado Sodium [Moles/Vol] 141 mmol/L Normal 136-145 [facility] Comment on above: Performed By: #### F T3, LIPID, TSH, CMP #### [facility] [address] [address] [address] Dayna Maldonado Urea nitrogen [Mass/Vol] 12.0 mg/dL Normal 7.0-18.0 [facility] Comment on above: Performed By: #### F T3, LIPID, TSH, CMP #### [facility] [address] [id number] Dayna Maldonado Urea nitrogen/Creatinine [Mass ratio] 12.6 mg/mg Normal [facility] Comment on above: Performed By: #### F T3, LIPID, TSH, CMP #### [facility] [address] [address] [address] Dayna Maldonado TSHon 11-16-2021 TSH 0.973 uIU/mL Normal 0.358-3.740 [facility] Comment on above: Performed By: #### F T3, LIPID, TSH, CMP #### [facility] [address] [address] [address] Dayna Maldonado XR chest 1Von 08-18-2021 XR chest 1V [facility] [place] [address] XRay Report Signed Patient: Dominick Silverio MR#: [id number] 45 : 1995 Acct:[id number] Age/Sex: 26 / M ADM Date: 08/18/21 Loc: [place] Room: Type: [facility] REF [facility] Copies to: Arcadio Germain DO Ordering Provider: [...] Sanchez Jr., D.O.08/18/2021 10:25 AM Dictation Location: [address] [address] Transcribed By: [facility] 08/18/21 1025 Dictated By: Brandon Sanchez Jr, DO 08/18/21 1025 Signed By: 08/18/21 1025 [facility] Encounters Encounter Date Encounter Type Care Provider Facility Start: 11-20-2021 ambulatory ERIK SHAMMO Facility:[facility] 1 Start: 11-18-2021 Encounter for genera l adult medical examination without abnormal findings ERIK SHAMMO [facility] Start: 11-16-2021 End: 11-17-2021 ambulatory ERIK SHAMMO Facility:[facility] Start: 11-16-2021 End: 11-17-2021 Encounter for general adult medical examination without abnormal findings ERIK SHAMMO Facility:[facility] Start: 08-18-2021 End: 08-18-2021 Departed Referred DO Arcadio Germain Work Phone: [facility] [address] Payers Date Payer Category Payer Unknown [id number] 1995 Unknown [id number] 1957 Private Health Insurance [id number] 1957 Self-pay Social History Date Type Detail Facility Tobacco smoking stat [facility] Unknown if ever smoked [facility] Work Phone: Start: 1995 Sex Assigned At Male [facility] Evaluation note Note Date & Type Note Facility Evaluation note No assessment information availa ble [facility] Work Phone: Chief Complaint and Reason for Visit Chief Complaint WORK Summary Purpose Family History No Family History Records FoundNo Family History Records Found Advance Directives No Advanced Directives Records FoundNo Advanced Directives Records Found Additional Source Comments Care Teams (unrecognized sec tion and content) Team Status: Inactive Member Role Status Dates Arcadio Germain DO [facility] Attending Provider Active Goals (unrecognized section and content) Goals may be documented in a n alternate section (unrecognized sect ion and content) No Status Records FoundNo Status Records Found INFORMATION SOURCE (unrecogn ized section and content) DATE CREATED AUTHOR 08/19/2021 [facility] DATE CREATED AUTHOR AUTHORMiracle ROONEY 11/21/2021 [...] BE BASED ON THE PRIMARY CLINICAL RECORDS. [employer] provides no warranty or guarantee of the accuracy or completeness of information in this document.
[2024-02-06 06:27] LABS: Basophils Absolute Auto 0.1 10^3/uL (0.0-0.1); Basophils Percent Auto 0.3 % (0.2-2.0); Eosinophils Absolute Auto 0.1 10^3/uL (0.0-0.7); Eosinophils Percent Auto 0.6 % (0.9-7.0); Hematocrit 41.8 % (42.0-54.0); Hemoglobin 14.1 g/dL (14.0-18.0); Immature Granulocytes Abs Auto 0.12 10^3/uL (0.00-0.03); Immature Granulocytes Pct Auto 0.6 % (0.0-0.5); Lymphocytes Absolute Auto 5.4 10^3/uL (1.2-3.8); Lymphocytes Percent Auto 26.4 % (20.5-60.0); Mean Corpuscular HGB Conc 33.7 g/dL (29.9-35.2); Mean Corpuscular Hemoglobin 29.4 pg (25.9-34.0); Mean Corpuscular Volume 87.3 fL (80.0-94.0); Mean Platelet Volume 10.3 fL (9.5-13.5); Monocytes Absolute Auto 2.2 10^3/uL (0.3-0.8); Monocytes Percent Auto 10.6 % (1.7-12.0); Neutrophils Absolute Auto 12.5 10^3/uL (1.4-6.5); Neutrophils Percent Auto 61.5 % (43.0-75.0); Platelet Count 183 10^3/uL (150-450); Red Blood Count 4.79 10^6/uL (4.70-6.10); Red Cell Distribution Width 13.1 % (11.0-15.0); White Blood Count 20.3 10^3/uL (4.0-11.0)
[2024-02-06 06:43] LABS: Alanine Aminotransferase 37 U/L (16-63); Albumin Globulin Ratio 1.3; Albumin Level 3.7 g/dL (3.4-5.0); Alkaline Phosphatase 46 U/L (46-116); Anion Gap 15.3; Aspartate Amino Transferase 21 U/L (15-37); BUN Creatinine Ratio 8.7; Bilirubin Total 0.7 mg/dL (0.2-1.0); Calcium 8.2 mg/dL (8.5-10.1); Carbon Dioxide 24.7 mmol/L (21.0-32.0); Chloride 106 mmol/L (98-107); Estimated GFR (African America 54 (>=60 mL/min/1.73m^2); Estimated GFR (Non-African Ame 45 (>=60 mL/min/1.73m^2); Globulin 2.9 g/dL; Glucose 105 mg/dL (74-106); Magnesium 1.9 mg/dL (1.8-2.4); Sodium 142 mmol/L (136-145); Total Protein 6.6 g/dL (6.4-8.2)
[2024-02-06] MEDS: TAMSULOSIN HCL 0.4 MG CAPSULE PO (08:57)
--- NOTE | 2024-02-06 10:15 | CM.NOTE ---
Rounds made with Dr. Duff, pt continues with significant pain to L flank area. Pt will go to OR at noon, Dr. Duff will re-evaluate pain control after OR.
[2024-02-06] MEDS: CEFAZOLIN SODIUM 2 GM/50 ML D5W PREMIX IV (12:05)
[2024-02-06] MEDS: LACTATED RINGER'S SOLUTION 1,000 ML 50 ML IV (12:05)
--- NOTE | 2024-02-06 12:14 | PM.URCN ---
Urology - CN: HPI Date of Consult Requesting Physician: Shaikh Omega MD Primary Care Provider: Non-Staff Physician, Consult Narrative Narrative: Patient is a 28-year-old male who presents with left-sided flank pain of several day duration. He states that the pain continued to worsen and he presented to the ED. Upon admission to the ED creatinine uptrending from baseline normal to 1.8. He continues to have left CVA tenderness. He has previously passed stones on his own. Extensive family history of nephrolithiasis. Currently denies any fevers, chills, nausea or vomiting. No gross hematuria. No voiding difficulties. cc:: CC: Shaikh Omega MD Review of Systems ROS 12 point review of system done and negative except as per HPI PFSH PFSH Surgical History (Updated 02/05/24 @ 22:44 by Shirin Max) Hernia ?K46.9 - Unspecified abdominal hernia without obstruction or gangrene (ICD-10) Family History (Updated 02/05/24 @ 22:46 by Shirin Max) Father Family history of CHF (congestive heart failure) Family history of diabetes mellitus Family history of hypertension Family history of myocardial infarction Grandfather Family history of myocardial infarction Family history of CHF (congestive heart failure) Family history of diabetes mellitus Family history of hypertension Social History (Updated 02/05/24 @ 22:47 by Shirin Max) Within the past year, how often did you have a drink containing alcohol: never Score interpretation: A score less than 4 is consistent with normal alcohol consumption. 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 Highest level of school completed/degree received: 11th grade Are you now , , , , never or living with a partner: In a typical week, how many times do you talk on the telephone with family, friends, or neighbors: 3 or more times per week How often do you get together with friends or relatives: 3 or more times per week How often do you attend religion or restoration services: never Little interest or pleasure in doing things: not at all Feeling down, depressed, or hopeless: not at all Feel stressed/tense/nervous/anxious/difficulty sleeping: not at all Do you think of yourself as: straight/heterosexual Gender Identity: male Meds Home Medications and Allergies Home Medications ?Medication ?Instructions ?Recorded ?Confirmed ?Type ondansetron HCl 4 mg tablet 4 mg PO Q8H 3 days #9 tabs 02/04/24 02/05/24 Rx tamsulosin 0.4 mg capsule (Flomax) 0.4 mg PO DAILY #5 caps 02/04/24 02/05/24 Rx Allergies Allergy/AdvReac Type Severity Reaction Status Date / Time No Known Drug Allergies Allergy Verified 02/05/24 17:33 Exam Narrative Exam Narrative: General: Alert and oriented x 3, NAD Cardiovascular: Regular rate and rhythm Abdomen: Soft, nontender, nondistended no guarding or rigidity noted Lungs: Nonlabored breathing on room air : Left CVA tenderness appreciated Skin: Warm and dry Extremities: No peripheral edema noted Constitutional Vital Signs, click to edit/add: Last Vital Signs Temp 98.5 F 02/06/24 10:04 Pulse 81 02/06/24 10:04 Resp 20 02/06/24 10:04 BP 119/81 02/06/24 10:04 Pulse Ox 97 02/06/24 10:04 O2 Del Method Room Air 02/06/24 10:04 Results Labs Labs: Short CBC 02/05/24 02/06/24 Range/Units 17:45 05:45 WBC 26.9 H 20.3 H (4.0-11.0) 10^3/uL Hgb 15.2 14.1 (14.0-18.0) g/dL Hct 43.5 41.8 L (42.0-54.0) % Plt Count 222 183 (150-450) 10^3/uL BMP 02/05/24 02/06/24 17:45 05:45 Sodium 141 142 Potassium 4.1 4.0 Chloride 103 106 Carbon Dioxide 24.6 24.7 BUN 17.0 16.0 Creatinine 1.84 H 1.84 H Glucose 121 H 105 Calcium 9.2 8.2 L Liver Function 02/05/24 02/06/24 Range/Units 17:45 05:45 Total Bilirubin 0.9 0.7 (0.2-1.0) mg/dL AST 29 21 (15-37) U/L ALT 43 37 (16-63) U/L Alkaline Phosphatase 50 46 (46-116) U/L Albumin 4.3 3.7 (3.4-5.0) g/dL Urine 02/05/24 Range/Units 19:04 Urine Color Yellow (YELLOW) Urine Clarity Clear (CLEAR) Urine pH 6.0 (5.0-9.0) Ur Specific Page 1.025 (1.005-1.025) Urine Protein Negative (NEG/TRACE) mg/dL Urine Glucose (UA) Negative (NEGATIVE) mg/dL Urology Assessment and Plan Assessment and Plan (1) Left ureteral stone: Assessment and Plan: 1. Left obstructing ureteral stone Will go to the OR for cystoscopy, left ureteroscopy, left laser lithotripsy with stone extraction Stent will be placed after procedure Patient can be discharged home after procedure He will follow-up in 6 weeks with renal ultrasound, KUB prior to office visit Encouraged to hydrate with at least 2 L/day Flomax, oxybutynin for stent discomfort on discharge Due to patient's age will benefit from stone analysis on outpatient basis Will give 2 g Ancef prior to procedure (2) Acute kidney injury: Assessment and Plan: Continue to trend creatinine after stent placement
--- NOTE | 2024-02-06 12:50 | P.URON_ITS ---
Urology Surgery Operative Note Operative Note Procedure Date: 02/06/24 Time Out Performed: yes Pre-op Diagnosis: Left obstructing distal ureteral stone Post-op Diagnosis: same as pre-op Procedures performed: Cystoscopy, left ureteroscopy, left laser lithotripsy, left ureteral stent placement Anesthesia: GETA Primary Surgeon: Ramon Smith Complications: None Estimated blood loss (mL): 0 Findings: Impacted distal ureteral stone lasered out of the ureter with no obstruction noted proximally to that Successful placement of 6 x 26 cm double-J ureteral stent with a curl in renal pelvis and a curl in the bladder with strings on stent Specimens: Stone for analysis Drains: 6 x 26 cm double-J ureteral stent with strings Indications for Procedures: Patient is a 28-year-old male who presented with left-sided flank pain. CT abdomen/pelvis showed a distal left ureteral stone and he presented for definitive stone treatment. H&P was reviewed, informed consent was obtained, patient understood risk, benefits, alternatives of the procedure and wished to proceed. Detailed description of Procedure: Patient was brought to the operative suite and placed on continuous pulse oximetry and cardiac monitoring anesthesia. IV antibiotics including 2 g of Ancef was administered. He was then placed in a dorsolithotomy position and prepped and draped in normal sterile fashion. Timeout was performed confirming patient, procedure, side, all in the room agreed. A well-lubricated 22 English cystoscopic sheath with 30 degree lens was inserted into urethral meatus and advanced into the bladder. Upon entering the bladder we directed attention to the left ureteral orifice which was cannulated with a Glidewire passed of a second wire. We then over one of the wires went up with a semirigid ureteroscope into the distal ureter where we noted an impacted distal ureteral stones. We then obtained a 200 ?m laser fiber and laser the stone out of the ureter. Once this was done we went back up with the semirigid scope into the proximal ureter and there was no further stone noted. Then over the wire we placed a 6 x 26 cm double-J ureteral stent visualized and a curl in the renal pelvis and a curl in the bladder. No stone in the bladder was then sent for analysis. Strings on the stent were then taped to the head of the penis. This concluded the procedure. Patient was then awakened anesthesia and transferred to PACU in stable condition. Plan: Patient can remove stent in 5 days He can take Flomax, oxybutynin for stent discomfort He will follow-up in 6 weeks with KUB, renal ultrasound Patient will need 24-hour urinalysis to help reduce his risk for further stone formation
--- NOTE | 2024-02-06 13:00 | P.HP_ITS ---
HPI H&P: HPI History of Present Illness Chief complaint: FLANK PAIN/BACK PAIN KIDNEY STONE FLANK PAIN MATT Narrative: HPI and Hospital Course: 28 y o male, morbidly obese with hx of recurrent renal stones presented to ED last evening with left sided abdominal pain X 2 days. Pain was persistent, dull with periods of worsening spasmodic/sharp pain. Patient also noticed small amount of blood in his urine. Pain radiated from left flank to his groin area. He was seen in ED 2 days ago and was found to have small distal ureteral stone and was discharged home on Flomax. However, his pain worsened/persisted where he could not get comfortable so he came to ED for further eval. He was found to have sig leukocytosis, mild MATT and left sided mild hydroureter due to distal 4 mm ureteral stone. Patient was admitted fo pain control and Urology eval. Patient was treated with IV dilaudid for pain, Zofran as needed for nausea and empirically received IV rocephin. He was taken to OR for cystoscopy, ureteral stent placement. He felt well post operatively voided w/o difficulty and tolerated PO diet. Patient stable for discharge. Will need outpatient f.u with Urology. Opioid HPI Opioid Management Most Recent Pain and Opioid Data: Last Pain Scale 5 02/06/24 13:58 02/06/24 Last Pain Assessment 02/06/24 14:43 Last ED Pain Assessment 02/04/24 19:17 Last MAR Pain Assessment 02/06/24 10:22 Last ORT Total Score 0 02/05/24 22:30 02/05/24 Last ORT Risk Category Low Risk 02/05/24 22:30 02/05/24 Review of Systems ROS Status of ROS 10 or more systems reviewed and unremark able except as noted in history and below [facility] Medical History (Updated 02/06/24 @ 13:02 by Shaikh Omega MD) Recurrent kidney stones ?N20.0 - Calculus of kidney (ICD-10) Obesity ?E66.9 - Obesity, unspecified (ICD-10) Surgical History (Updated 02/05/24 @ 22:44 by Shirin Max) Hernia ?K46.9 - Unspecified abdominal hernia without obstruction or gangrene (ICD- 10) Family History (Updated 02/05/24 @ 22:46 by Shirin Max) Father Family history of CHF (congestive heart failure) Family history of diabetes mellitus Family history of hypertension Family history of myocardial infarction Grandfather Family history of myocardial infarction Family history of CHF (congestive heart failure) Family history of diabetes mellitus Family history of hypertension Social History (Updated 02/05/24 @ 22:47 by Shirin Max) Within the past year, how often did you have a drink containing alcohol: never Score interpretation: A score less than 4 is consistent with normal alcohol consumption. 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 Highest level of school completed/degree received: 11th grade Are you now , , , , never or living with a partner: In a typical week, how many times do you talk on the telephone with family, friends, or neighbors: 3 or more times per week How often do you get together with friends or relatives: 3 or more times per week How often do you attend mormonism or church services: never Little interest or pleasure in doing things: not at all Feeling down, depressed, or hopeless: not at all Feel stressed/tense/nervous/anxious/difficulty sleeping: not at all Do you think of yourself as: straight/heterosexual Gender Identity: male Meds Home Medications and Allergies Home Medications ?Medication ?Instructions ?Recorded ?Confirmed ?Type ondansetron HCl 4 mg tablet 4 mg PO Q8H 3 days #9 tabs 02/04/24 02/05/24 Rx tamsulosin 0.4 mg capsule (Flomax) 0.4 mg PO DAILY #5 caps 02/04/24 02/05/24 Rx docusate sodium 50 mg capsule 50 mg PO DAILY #10 caps 02/06/24 Rx (Colace Clear) oxybutynin chloride 5 mg 5 mg PO DAILY #5 tabs 02/06/24 Rx tablet,extended release 24 hr tamsulosin 0.4 mg capsule (Flomax) 0.4 mg PO DAILY #7 caps 02/06/24 Rx Allergies Allergy/AdvReac Type Severity Reaction Status Date / Time No Known Drug Allergies Allergy Verified 02/05/24 17:33 Exam Constitutional Vital Signs, click to edit/add: Last Vital Signs Temp 98.5 F 02/06/24 10:04 Pulse 81 02/06/24 10:04 Resp 20 02/06/24 10:04 BP 119/81 02/06/24 10:04 Pulse Ox 97 02/06/24 10:04 O2 Del Method Room Air 02/06/24 10:04 Documenting provider has reviewed patient's vital signs: yes Common normals: no apparent distress and oriented x3 General appearance: cooperative HENKY Common normals: normocephalic and head/scalp atraumatic Head and scalp: normocephalic and atraumatic Eye Common normals: conjunctivae normal and no scleral icterus Conjunctiva: conjunctiva(e) normal Respiratory Common normals: normal respiratory effort and clear to auscultation bilaterally Effort & inspection: able to speak in complete sentences Auscultation: clear to auscultation bilaterally Cardio Common normals: regular rate, S1 normal heart sound and S2 normal heart sound Rate: regular rate Heart sounds: S1 normal and S2 normal GI Common normals: Normal to inspection, nondistended, normoactive bowel sounds present, soft to palpation, non-tender and no hepatosplenomegaly Palpation: soft and no hepatosplenomegaly Extremity Common normals: no clubbing, cyanosis or edema Neuro Common normals: oriented x3, moves all extremities and no focal motor deficits Psych Common normals: mental status grossly normal, denies hallucinations, denies homicidal ideation and denies suicidal ideation Results Labs Labs: Short CBC 02/05/24 02/06/24 Range/Units 17:45 05:45 WBC 26.9 H 20.3 H (4.0-11.0) 10^3/uL Hgb 15.2 14.1 (14.0-18.0) g/dL Hct 43.5 41.8 L (42.0-54.0) % Plt Count 222 183 (150-450) 10^3/uL BMP 02/05/24 02/06/24 17:45 05:45 Sodium 141 142 Potassium 4.1 4.0 Chloride 103 106 Carbon Dioxide 24.6 24.7 BUN 17.0 16.0 Creatinine 1.84 H 1.84 H Glucose 121 H 105 Calcium 9.2 8.2 L Liver Function 02/05/24 02/06/24 Range/Units 17:45 05:45 Total Bilirubin 0.9 0.7 (0.2-1.0) mg/dL AST 29 21 (15-37) U/L ALT 43 37 (16-63) U/L Alkaline Phosphatase 50 46 (46-116) U/L Albumin 4.3 3.7 (3.4-5.0) g/dL Urine 02/05/24 Range/Units 19:04 Urine Color Yellow (YELLOW) Urine Clarity Clear (CLEAR) Urine pH 6.0 (5.0-9.0) Ur Specific [place] 1.025 (1.005-1.025) Urine Protein Negative (NEG/TRACE) mg/dL Urine Glucose (UA) Negative (NEGATIVE) mg/dL Assessment and Plan Assessment and Plan (1) Left ureteral stone: (2) Acute kidney injury: (3) Leukocytosis: Qualifiers: Leukocytosis type: leukemoid reaction Qualified Code(s): D72.823 - Leukemoid reaction (4) Hydroureter on left: (5) Obesity: Qualifiers: Body mass index: BMI 45.0-49.9 Obesity classification: adult class 3 (BMI >= 40) Obesity type: due to excess calories Serious obesity comorbidity presence: without serious comorbidity Qualified Code(s): E66.813 - Obesity, class 3; E66.01 - Morbid (severe) obesity due to excess calories; Z68.42 - Body mass index [BMI] 45.0-49.9, adult Plan Intractable pain due to left ureteral stone, with left hydroureter resulting in mild MATT and leukocytosis. Patient was seen by Urology and underwent Cystoscopy, left ureteroscopy, left laser lithotripsy, left ureteral stent placement Pain is well controlled now. Stable for discharge. Post op instructions as per Urology. Will d/c on oral abx. Flomax and Oxybutynin called in by Urology.
--- NOTE | 2024-02-06 13:16 | PC.NURSE ---
Voided bloody urine in urinal; no clots noted; c/o burning with urinating
--- NOTE | 2024-02-09 13:05 | CM.DCFOLLOWU ---
Person spoke with:patient How are you feeling? still some pain on left side How is your pain? minimal Did you understand your discharge instructions? yes Do you have any questions about your discharge instructions? no Were you given any prescriptions at discharge?yes Were you able to get your prescriptions filled?yes Do you understand how to take your medications as ordered?yes Do you have any questions about your follow up appointment and do you plan to keep your follow up appointment? no questions, waiting on PCP to call him Is there anything else that you would like to discuss?no Questions/Comments/Concerns/Other:none
== END 2024-02-06 16:10 | disposition home or self-care (01) ==
LOC: ER 21:44 → MS 02-06 06:40
PROVIDERS: Physician Assistant; Registered Nurse; Student in an Organized Health Care Education/Training Program; Admitting Provider Internal Medicine; Emergency Provider Emergency Medicine; Visit Provider Internal Medicine
PROC: (CPT 918; principal; 2024-02-06 12:00)
DX: N20.2 Calculus of kidney with calculus of ureter (principal); N17.9 Acute kidney failure, unspecified; E66.813 Obesity, class 3; Z68.42 Body mass index [BMI] 45.0-49.9, adult; Z84.1 Family history of disorders of kidney and ureter; Z87.442 Personal history of urinary calculi
CPT/HCPCS: 52356; 36415; 74176; 76000; 80053; 81003; 82365; 83605; 83735; 85007; 85025; 85027; 94761; 96365; 96375; 96376; 99285; 99999; G0378; J0690; J0696; J1171; J1885; J2250; J2405; J2704; J3010

== ENCOUNTER 2025-02-02 02:20 | Emergency (ER) | payer MEDICAID, SELFPAY ==
[2025-02-02 02:32] VITALS: BP 154/100; PULSE 102; TEMP 36.9; O2SAT 98; BMI 31.5
--- NOTE | 2025-02-02 02:45 | ED_ITS ---
HPI HPI - Back Pain/Injury General Chief Complaint: Back Pain/Injury Stated Complaint: back pain Time Seen by Provider: 02/02/25 02:42 Source: patient Mode of arrival: walk-in Limitations: no limitations History of Present Illness HPI Narrative: states he cracked his back 8 hours ago and still has pain. pain radiates into left hip area. no weakness. No loss of control of bowel or bladder. no associated nausea Related Data Previous Rx's ?Medication ?Instructions ?Recorded ondansetron HCl 4 mg tablet 4 mg PO Q8H 3 days #9 tabs 02/04/24 tamsulosin 0.4 mg capsule (Flomax) 0.4 mg PO DAILY #5 caps 02/04/24 cefdinir 300 mg capsule 300 mg PO BID 5 days #10 cap s 02/06/24 docusate sodium 50 mg capsule 50 mg PO DAILY #10 caps 02/06/24 (Colace Clear) oxybutynin chloride 5 mg 5 mg PO DAILY #5 tabs tablet,extended release 24 hr tamsulosin 0.4 mg capsule (Flomax) 0.4 mg PO DAILY #7 caps 02/06/24 Allergies Allergy/AdvReac Type Severity Reaction Status Date / Time No Known Drug Allergies Allergy Verified 02/02/25 02:32 Opioid HPI Opioid Management Most Recent Opioid Data: Last Pain Scale 7 Today, 02:39 Last ORT Total Score 0 02/05/24, 22:30 Last ORT Risk Category Low Risk 02/05/24, 22:30 Review of Systems ROS Status of ROS 10 or more systems reviewed and unremark able except as noted in history and below [facility] Medical History (Updated 02/02/25 @ 04:23 by Sekou Germain MD) Hydroureter on left ?N13.4 - Hydroureter (ICD-10) Leukocytosis ?D72.829 - Elevated white blood cell count, unspecified (ICD-10) Left ureteral stone ?N20.1 - Calculus of ureter (ICD-10) Acute kidney injury ?N17.9 - Acute kidney failure, unspecified (ICD-10) Acute left flank pain ?R10.9 - Unspecified abdominal pain (ICD-10) Recurrent kidney stones ?N20.0 - Calculus of kidney (ICD-10) Obesity ?E66.9 - Obesity, unspecified (ICD-10) Surgical History (Updated 02/05/24 @ 22:44 by Shirin Max) Hernia ?K46.9 - Unspecified abdominal hernia without obstruction or gangrene (ICD- 10) Family History (Updated 02/05/24 @ 22:46 by Shirin Max) Father Family history of CHF (congestive heart failure) Family history of diabetes mellitus Family history of hypertension Family history of myocardial infarction Grandfather Family history of myocardial infarction Family history of CHF (congestive heart failure) Family history of diabetes mellitus Family history of hypertension Social History (Updated 02/05/24 @ 22:47 by Shirin Max) Within the past year, how often did you have a drink containing alcohol: never Score interpretation: A score less than 4 is consistent with normal alcohol consumption. 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 Highest level of school completed/degree received: 11th grade Are you now , , , , never or living with a partner: In a typical week, how many times do you talk on the telephone with family, friends, or neighbors: 3 or more times per week How often do you get together with friends or relatives: 3 or more times per week How often do you attend quaker or tenriism services: never Little interest or pleasure in doing things: not at all Feeling down, depressed, or hopeless: not at all Feel stressed/tense/nervous/anxious/difficulty sleeping: not at all Do you think of yourself as: straight/heterosexual Gender Identity: male Exam Constitutional Vital Signs, click to edit/add: Last Vital Signs Temp 98.4 F 02/02/25 02:32 Pulse 73 02/02/25 04:09 Resp 18 02/02/25 04:09 BP 138/63 02/02/25 04:09 Pulse Ox 98 02/02/25 04:09 O2 Del Method Nasal Cannula 02/02/25 02:32 Common normals: no apparent distress, average body habitus, oriented x3, no limitations, healthy appearing, alert and well nourished [facility] Common normals: normocephalic and head/scalp atraumatic Eye Common normals: EOMs intact bilaterally and conjunctivae normal Respiratory Common normals: normal respiratory effort, no retractions, no use of accessory muscles and clear to auscultation bilaterally Cardio Common normals: regular rate, regular rhythm, S1 normal heart sound and S2 normal heart sound Back & Pelvis Other: mild tenderness L-spine Extremity Common normals: normal to inspection and full ROM Neuro Common normals: oriented x3, CN's II-XII intact bilaterally, moves all extremities and no focal motor deficits Psych Appearance: grossly normal Course Vital Signs Vital signs: Vital Signs Temperature 98.4 F 02/02/25 02:32 Pulse Rate 102 H 02/02/25 02:32 Respiratory Rate 19 02/02/25 02:32 Blood Pressure 154/100 H 02/02/25 02:32 Pulse Oximetry 98 02/02/25 02:32 Oxygen Delivery Method Nasal Cannula 02/02/25 02:32 Temperature 98.4 F 02/02/25 02:32 Pulse Rate 73 02/02/25 04:09 Respiratory Rate 18 02/02/25 04:09 Blood Pressure 138/63 02/02/25 04:09 Pulse Oximetry 98 02/02/25 04:09 Oxygen Delivery Method Nasal Cannula 02/02/25 02:32 MDM - Back Pain/Injury MDM Narrative Medical decision making narrative: patient presents complaining of acute pain of his lower back after cracking his back. exam unremarkable. CT with findings of disc bulge L4-L5 and L5-S1 that appears to impinge up the left S! nerve root. Patient informed of the bulging disc and advised to never crack his back. Given solumedrol here and dischrged with prednisone Discharge Plan Discharge Chief Complaint: Back Pain/Injury Clinical Impression: Lower back injury Patient Disposition: Home, Self-Care Prescriptions / Home Meds: No Action tamsulosin [Flomax] 0.4 mg capsule 0.4 mg PO DAILY Qty: 5 0RF ondansetron HCl 4 mg tablet 4 mg PO Q8H 3 Days Qty: 9 0RF tamsulosin [Flomax] 0.4 mg capsule 0.4 mg PO DAILY Qty: 7 0RF oxybutynin chloride 5 mg tablet extended release 24hr 5 mg PO DAILY Qty: 5 0RF Colace Clear 50 mg capsule 50 mg PO DAILY Qty: 10 0RF cefdinir 300 mg capsule 300 mg PO BID 5 Days Qty: 10 0RF Print Language: [place]an Instructions: Back Pain (ED), Lower Back Exercises (ED) Additional Instructions: use ibuprofen or similar for pain along with prescribed medication and follow up with your doctor next week Referrals: Physician,Non-Staff, MD [Primary Care Provider] - 1 week
--- OUTSIDE RECORDS SUMMARY | 2025-02-02 02:57 | XMS_ITS | Clinical Summary ---
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 30 g 5Active Active Problems ProblemNoted DateDiagnosed NolkGkfyuahxtqm84/12/2025Chest pain03/28/2024Morbid eecclvg3103/28/2024Gastroesophageal reflux disease without miadpglvxkb17/12/2025 Encounters DateTypeDepartmentCare OszrPmnhbiqhwhm48/14/2025Results Follow-Up [facility] [address] [place] [phone] Stone Monteiro, DO Lipid profile, Comprehensive metabolic panel12/27/2024 10:30 AM ESTOffice Visit [facility] [address] [place] [phone] Stone Monteiro, DO Well adult exam (Primary Dx); Class 3 severe obesity due to excess calories with serious comorbidity and body mass index (BMI) of45.0 to 49.9 in adult ([facility])12/27/2024Travelfrom Last 3 Months Immunizations ImmunizationAdministration DatesNext MsmXGE80/,1997,1997DTaP, Voupyvatmrf86/12/2002,1997Hep B / HIB1997Hep B, Adolescent or Bxrifnhiw37/15/1998,1997HiB06/11/1998,1997,1997IPV102/25/2001, 1997MMR102/25/2001,06/11/1998Meningococcal TKU5C2410/28/2009Polio, Mgkkftynlvn52/28/1999,1997Tdap10/28/20090504Abawdzmfz33/14/2010,06/11/1998 Family History Medical HistoryRelationNameCommentsDiabetesFatherHeart diseaseFatherDiabetes Maternal GrandfatherHyperlipidemiaMaternal GrandfatherRelationNameStatusComments FatherAliveMaternal GrandfatherAliveMotherAlive Social History Tobacco UseTypesPacks/DayYears UsedDateSmoking Tobacco: Some DaysCigarettes Smokeless Tobacco: Never Tobacco Cessation:Ready to Q uit: Not Asked; Counseling Given: Not Answered Alcohol UseStandard Drinks/WeekCommentsNever0 (1 standard drink = 0.6 oz pure alcohol)[facility] UtilitiesAnswerDate RecordedIn the past 12 months has the [employer], gas, oil, or water [employer] threatened to shut off services in your home?No 03/28/2024Social Connection and Isolation PanelAnswerDate RecordedIn a typical week, how many times do you talk on the phone with family, friends, or neighbors?More than three times a week03/28/2024How often do you get together with friends or relatives?Once a week03/28/2024How often do you attend jewish or denominational services?Never03/28/2024Do you belong to any clubs or organizations such as jewish groups, unions, fraternal or athletic groups, or school groups?No 03/28/2024How often do you attend meetings of the clubs or organizations you belong to?Never03/28/2024re you , , , , never , or living with a partner?Zywlvft4303/28/2024PHQ-2AnswerDate RecordedTotal Vhoxe207Finintermountain healthcare [facility] [employer] - Occupational Stress QuestionnaireAnswerDate RecordedDo you feel stress - tense, restless, nervous, or anxious, or unable to sleep at night because yourmind is troubled all the time - these days?To some adydlq0703/28/2024Exercise Vital SignAnswerDate Recorded On average, how many days per week do you engage in moderate to strenuous exercise (like a brisk walk)?0 days03/28/2024On average, how many minutes do you engage in exercise at this level?0 min03/28/2024UDIT-CAnswerDate RecordedQ1: How often do you have a drink containing alcohol?Monthly or less12/27/2024Q2: How many drinks containing alcohol do you have on a typical day when you are drinking?1 or Q3: How often do you have six or more drinks on one occasion?Less than bsdcsmg1912/27/2024Overall Financial Resource Strain (CARDIA) AnswerDate RecordedHow hard is it for you to pay for the very basics like food, housing, medical care, and heating?Not very hard12/27/2024PRAPARE - TransportationAnswerDate RecordedIn the past 12 months, has lack of transportation kept you from medical appointments or from getting medications?No 12/27/2024In the past 12 months, has lack of transportation kept you from meetings, work, or from getting things needed for daily living?No12/27/2024 Housing InstabilityAnswerDate RecordedAre you worried or concerned that in the next two months you may not have stable housing that you own, rent or stay in as a part of a household?No12/27/2024hildcareAnswerDate RecordedDo problems getting child protective investigator make it difficult for you to work or study?No03/28/2024 EmploymentAnswerDate RecordedDo you need help finding a local career center and/or a training program?No03/28/2024Hunger ScreeningAnswerDate RecordedWithin the past 12 months we worried whether our food would run out before we got money to buy more.Never True12/27/2024Within the past 12 months the food we bought just didn't last and we didn't have money to get more.Never True12/27/2024 Purpose - LifeAnswerDate RecordedI have a purpose and direction in my life. Strongly Agree03/28/2024Sex and Gender InformationValueDate RecordedSex Assigned at BirthNot on fileLegal PbaKblx0009/19/2014 11:53 AM EDTGender IdentityNot on fileSexual OrientationNot on file Last Filed Vital Signs Vital SignReadingTime TakenCommentsBlood Ndojpxuh782/7012/27/2024 10:39 AM EST Pyoci982712/27/2024 10:39 AM GCMTsbrbqeceid80.8 ??C (98.3 ??F)12/27/2024 10:39 AM ESTRespiratory Kgwz233502/27/2024 10:39 AM ESTOxygen Pobavcijih92%12/27/2024 10:39 AM ESTInhaled Oxygen Concentration--Ptccnh179.4 kg (316 lb 1.6 oz)12/27/2024 10:39 AM XYEXsmrup477.3 cm (5' 9.02 )12/27/2024 10:39 AM ESTBody Mass Index46.66 12/27/2024 10:39 AM EST Plan of Treatment Health MaintenanceDue DateLast DoneCommentsTobacco Xwlmkahdrl67/04/1998Adult BMI Follow Up Plan04/18/2015DTaP,Tdap and Td Vaccines (7 - Td or Tdap)02/14/2025 10/28/2009, 12/26/2001, 06/11/1998, Additional history existsPostponed from 10/29/2019 (Patient Refused)Depression Zqiiaagkb53Influenza Dceviqn2705/14/2025Postponed from 10/15/2024 (Patient Refused)Adult BMI Screening Tobacco Zpbayjztl23 Medical Devices Not on file Procedures Procedure NamePriorityDate/TimeAssociated DiagnosisCommentsCOMPREHENSIVE METABOLIC BGVJABzlpaor24/13/2025 11:13 AM EST Well adult exam LIPID DHMNORREbdjuhy80/13/2025 11:13 AM EST Well adult exam from Last 3 Months Results * (ABNORMAL) Lipid profile (12/27/2024 11:13 AM EST)ComponentValueRef RangeTest MethodAnalysis TimePerformed AtPathologist PtqsnzrdiRIPMRYJBTQK948(H)150 - 200 mg/dL12/27/2024 6:26 PM [facility] QNVUHNRWEVVYGTOVLEJRUN165 (H)27 - 150 mg/dL12/27/2024 6:26 PM [facility] LABORATORYHDL ROQVEIAHVUW70(L)>39 mg/dL12/27/2024 6:26 PM [facility] LABORATORYComment: HDL <40 mg/dL - High Risk HDL > or = 40mg/dL- Desirable HDL >60 mg/dL - Negative Risk LDL (CALC)126<130 mg/dL12/27/2024 6:26 PM [facility] Comment: LDL <100 mg/dL - Desirable LDL >160 mg/dL - High Risk CHOLESTEROL:HDL5.9(H)1.0 - 5.011 6:26 PM [facility] LABORATORYVERY LOW JPKWRCYYEKH92(H)0 - 30 mg/dL12/27/2024 6:26 PM [facility] LABORATORYSpecimen (Source)Anatomical Location / Laterality Collection Method / VolumeCollection TimeReceived TimeBloodVenous blood / Opczquz4812/27/2024 11:13 AM EST12/27/2024 11:13 AM EST Narrative Authorizing ProviderResult TypeResult StatusDennis G Ancor[facility] Psychiatric Hospitalng DOLAB BLOOD ORDERABLESFinal ResultPerforming OrganizationAddressCity/State/ZIP CodePhone Number [facility] [address] [place] [address], * Comprehensive metabolic panel (12/27/2024 11:13 AM EST)ComponentValueRef Range Test MethodAnalysis TimePerformed AtPathologist AkfnnljabYLTKGZ030198 - 146 mmol/L102/27/2024 6:26 PM [facility] LABORATORYPOTASSIUM4.83.5 - 5.0 mmol/L102/27/2024 6:26 PM [facility] LABORATORYCHLORIDE 15118 - 109 mmol/L102/27/2024 6:26 PM [facility] CARBON USSDMTG2806 - 32 mmol/L102/27/2024 6:26 PM [facility] LABORATORYANION GAP95 - 15 mmol/L102/27/2024 6:26 PM [facility] LABORATORYBLOOD UREA ARPYLMVJ033 - 23 mg/dL12/27/2024 6:26 PM [facility] LABORATORYCREATININE0.970.60 - 1.30 mg/dL12/27/2024 6:26 PM [facility] LABORATORYComment:METHOD TRACEABLE TO IDIN BTSLEHJCQSHGTLZ6135 - 99 mg/dL12/27/2024 6:26 PM [facility] LABORATORYCALCIUM9.98.5 - 10.5 mg/dL12/27/2024 6:26 PM [facility] LABORATORYTOTAL PROTEIN7.46.0 - 8.0 g/dL12/27/2024 6:26 PM [facility] LABORATORYALBUMIN4.93.2 - 5.3 g/dL12/27/2024 6:26 PM [facility] LABORATORYALKALINE DXZNMWVISGE8215 - 130 U/L 12/27/2024 6:26 PM [facility] BHNVMTXYNVKHP19<=41 U/L 12/27/2024 6:26 PM [facility] WMSDYYOVXNDGU33<=40 U/L 12/27/2024 6:26 PM [facility] LABORATORYBILIRUBIN,TOTAL0.60.3 - 1.2 mg/dL12/27/2024 6:26 PM [facility] LABORATORYEGFR Non- Race Dependent>90>=60 ml/min/1.73sq.m102/27/2024 6:26 PM [facility] LABORATORYComment: Reported eGFR is based on the CKD-EPI 2020 equation that does not use a race coefficient. Specimen (Source)Anatomical Location / LateralityCollection Method / Volume Collection TimeReceived TimeBloodVenous blood / Nmfimxy0812/27/2024 11:13 AM EST 12/27/2024 11:13 AM EST Narrative Authorizing ProviderResult TypeResult StatusStone Monteiro DOLAB BLOOD ORDERABLESFinal ResultPerforming OrganizationAddressCity/State/ZIP CodePhone Number [facility] [address] [place] [address], [place] [phone] from Last 3 Months Insurance Care Teams Team MemberRelationshipSpecialtyStart DateEnd Date Stone Monteiro DO [address] [facility] [place] [address] PCP - GeneralFamily Medicine03/28/24
[2025-02-02 04:09] VITALS: BP 138/63; PULSE 73; O2SAT 98
--- NOTE | 2025-02-02 04:13 | PC.NURSE ---
this patient was able stand up and use the urinal, 300 ml of clear yellow urine out put. plus i told patient that ct results are back and Dr Germain will be shortly to tell you the ct results
[2025-02-02] MEDS: METHYLPREDNISOLONE SOD SUCC PF 125 MG/2 ML VIAL IM (04:42)
--- NOTE | 2025-02-02 04:43 | PC.NURSE ---
i gave this patient verbal and written discharge orders along with 1 Rx and this patient voices yes to understanding these. at time of discharge this patient voices no concerns, needs and shows no sign of distress
== END 2025-02-02 04:42 | disposition home or self-care (01) ==
PROVIDERS: Emergency Provider Internal Medicine
DX: S39.92XA Unspecified injury of lower back, initial encounter (principal); X58.XXXA Exposure to other specified factors, initial encounter; M51.379 Other intervertebral disc degeneration, lumbosacral region without mention of lumbar back pain or lower extremity pain
CPT/HCPCS: 72131; 76376; 96372; 99284; J2919